=== PATIENT | female | born 1960 | race Caucasian/White ===

== ENCOUNTER → 2020-09-14 12:16 | Outpatient (BNVA) | payer MEDICAID, SELFPAY | PROVIDERS: PCP Nurse Practitioner Family; Visit Provider Nurse Practitioner Family | DX: M25.511 Pain in right shoulder (principal); G89.29 Other chronic pain | CPT/HCPCS: 73030 ==

== ENCOUNTER → 2020-10-05 10:35 | Outpatient (BNVA) | payer MEDICAID, SELFPAY | PROVIDERS: PCP Family Medicine; Referring Provider Specialist; Visit Provider Anesthesiology Pain Medicine | DX: G89.29 Other chronic pain (principal); M54.12 Radiculopathy, cervical region; M43.12 Spondylolisthesis, cervical region; M25.511 Pain in right shoulder; M79.601 Pain in right arm; M19.90 Unspecified osteoarthritis, unspecified site; M79.7 Fibromyalgia; F17.210 Nicotine dependence, cigarettes, uncomplicated; Z79.891 Long term (current) use of opiate analgesic | CPT/HCPCS: 99204 ==

== ENCOUNTER 2020-10-19 09:16 | Outpatient (CLI) | payer MEDICAID, SELFPAY ==
--- NOTE | 2020-10-19 09:21 | XR_ITS ---
WS: [id number] CERVICAL SPINE FLEXION EXTENSION TECHNIQUE: 3 views of the cervical spine: lateral neutral, flexion and extension views. CLINICAL INFORMATION: M43.12 - Spondylolisthesis, cervical region COMPARISON: None. FINDINGS: 1 to 2 mm anterolisthesis C4 on C5. Mild disc space narrowing C5-6. Slight anterior hypertrophic haines ges. Normal prevertebral soft tissues. Normal C1-2 articulation. No instability on flexion-extension. Posterior elements are normal. No other significant findings. XR/XR cervical spine fl/ex [id number] IMPRESSION: No instability on flexion-extension.
--- NOTE | 2020-10-19 09:21 | MR_ITS ---
WS: [id number] MRI CERVICAL SPINE NONCONTRAST TECHNIQUE: Sagittal T1, T2 and STIR imaging. Axial T2, gradient, and fiesta imaging. CLINICAL INFORMATION: M54.12 - Radiculopathy, cervical region COMPARISON: None. FINDINGS: Normal cervical alignment. No high-grade central canal stenosis. Cord signal is normal. Disc bulging worse at C5-6. C2-C3: Normal. C3-C4: Normal. C4-C5: Mild disc osteophytic ridging. Spinal canal is patent. Mild left foraminal narrowing. Mild fac et arthropathy. C5-C6: Disc osteophyte complex with endplate ridging. Slight effacement of ventral thecal sac. Modera te left and no significant right foraminal narrowing. Mild facet arthropathy. Spinal canal is patent. C6-C7: Disc osteophyte complex with endplate ridging. Bdwj-ha-joovyqyt left foraminal narrowing. Righ t foramen is patent. Spinal canal is patent. C7-T1: Moderate left bony foraminal narrowing. Mild right bony foraminal narrowing. Spinal canal is p atent. Upper thoracic canal is patent. Visualized brain stem structures: Normal. Prevertebral soft tissues: Normal. MR/MR cervical spin wo con* [id number] IMPRESSION: 1. Normal cervical alignment. No high-grade central canal stenosis. Cord signa l is normal. 2. Mild to moderate bony foraminal narrowing worse at left C5-C6 and left C6-C 7. Moderate left C7-T1 bony foraminal narrowing. 3. Disc osteophyte bulging C5-C6 and C6-C7 with slight effacement of ventral t hecal sac.
== END 2020-10-19 09:17 | disposition home or self-care (01) ==
PROVIDERS: PCP Family Medicine; Visit Provider Anesthesiology Pain Medicine
DX: M43.12 Spondylolisthesis, cervical region (principal); M54.12 Radiculopathy, cervical region; M25.78 Osteophyte, vertebrae
CPT/HCPCS: 72040; 72141

== ENCOUNTER 2020-10-19 10:03 | Outpatient (CLI) | payer MEDICAID, SELFPAY ==
--- NOTE | 2020-10-19 10:12 | MR_ITS ---
WS: [id number] MRI RIGHT SHOULDER NONCONTRAST TECHNIQUE: Sagittal T2, coronal T1, T2 and proton density imaging. Axial gradient PDE imaging. CLINICAL INFORMATION: RT SHOULDER PAIN COMPARISON: None. FINDINGS: Some images degraded by patient motion. Moderate degenerative arthritis AC joint with a small amount of edema. Mild downsloping of the acromion with subacromial spurring. Slight impingement on the dista l supraspinatus with thinning of the distal supraspinatus with intrasubstance and bursal surface tear deep to the subacromial spurring. No tendon retraction. Normal infraspinatus. Normal teres minor. Normal subscapularis. Normal teres minor. Normal biceps tendon in the bicipital groove. Degenerative fraying of the glenoid labrum. Normal karlene ps labral anchor. Normal bone marrow signal in the humerus and glenoid. MR/MR shoulder RT wo con* [id number] IMPRESSION: 1. Moderate degenerative arthritis at the AC joint with edema and mild downslo ping acromion. Subacromial spurring. 2. Intrasubstance and bursal surface tear involving the distal supraspinatus w ith T2 signal abnormality. No tendon retraction. 3. Rotator cuff is otherwise normal. 4. Normal biceps tendon in the bicipital groove. Normal biceps anchor. 5. Degenerative fraying of the glenoid labrum. 6. No other significant findings.
== END 2020-10-19 10:04 | disposition home or self-care (01) ==
LOC: WPI 10:04
PROVIDERS: PCP Family Medicine; Visit Provider Specialist
DX: M25.511 Pain in right shoulder (principal); M19.011 Primary osteoarthritis, right shoulder
CPT/HCPCS: 73221

== ENCOUNTER → 2020-11-02 11:05 | Outpatient (BNVA) | payer MEDICAID, SELFPAY | PROVIDERS: PCP Family Medicine; Visit Provider Anesthesiology Pain Medicine | DX: G89.29 Other chronic pain (principal); M25.511 Pain in right shoulder; M54.12 Radiculopathy, cervical region; M79.601 Pain in right arm | CPT/HCPCS: 99215 ==

== ENCOUNTER → 2020-11-23 08:45 | Outpatient (BNVA) | payer MEDICAID, SELFPAY | PROVIDERS: PCP Family Medicine; Visit Provider Nurse Practitioner | DX: R56.9 Unspecified convulsions (principal); G43.019 Migraine without aura, intractable, without status migrainosus | CPT/HCPCS: 80177; 80201; 99205 ==

== ENCOUNTER 2021-01-02 07:52 | Outpatient (CLI) | payer MEDICAID, SELFPAY ==
--- NOTE | 2021-01-02 08:00 | MR_ITS ---
WS: [id number] MRI HEAD WITH CONTRAST TECHNIQUE: Sagittal T1, T2 axial, T2 axial FLAIR, axial susceptibility weighted imaging, axial diffus ion weighted images, and coronal T2 images were obtained. Pre and post-T1 axial and post T1 coronal i mages. ADC and FSPGR images. CLINICAL INFORMATION: G43.019 - Migraine without aura, intractable, without sta... COMPARISON: None. FINDINGS: No evidence of restricted diffusion to suggest acute ischemia. Ventricular system and basal cisterns are patent. Normal gan-white differentiation. No suspicious intracranial signal abnormalities. Sharon l posterior fossa. Normal vascular flow voids at the skull base. No extra-axial fluid collections. No evidence of mass or mass effect. Mild mucosal thickening in the mastoid air cells. Retention cyst ri ght maxillary sinus. No hemosiderin on susceptibly weighted images. Normal optic chiasm and pituitary infundibulum. Tempor al lobes and hippocampal formations are normal in appearance. No abnormal gadolinium enhancement. Normal cavernous sinuses and Meckel's cave. Normal dural venous s inuses. MR/MR head wo/w con [id number] IMPRESSION: 1. No evidence of restricted diffusion to suggest acute ischemia. 2. No suspicious intracranial signal abnormalities. Normal gan-white differen tiation. 3. No abnormal gadolinium enhancement. 4. No hemosiderin on the susceptibly weighted images. 5. No other significant findings.
[2021-01-02] MEDS: gadobenate dimeglumine 20 mL vial IV (09:40)
== END 2021-01-02 07:53 | disposition home or self-care (01) ==
LOC: RADSHAW 07:53
PROVIDERS: PCP Family Medicine; Visit Provider Nurse Practitioner
DX: G43.019 Migraine without aura, intractable, without status migrainosus (principal); R56.9 Unspecified convulsions
CPT/HCPCS: 70553; A9577

== ENCOUNTER → 2021-01-10 10:33 | Outpatient (BNVA) | payer MEDICAID, SELFPAY | PROVIDERS: PCP Family Medicine; Referring Provider Nurse Practitioner; Visit Provider Specialist | DX: R56.9 Unspecified convulsions (principal) | CPT/HCPCS: 95816 ==

== ENCOUNTER → 2021-04-22 08:36 | Outpatient (BNVA) | payer MEDICAID, SELFPAY | PROVIDERS: PCP Family Medicine; Visit Provider Family Medicine | DX: M25.50 Pain in unspecified joint (principal) | CPT/HCPCS: 80053; 85025; 85651; 86140; 86160; 86162; 86235; 86255; 86376; 86431 ==

== ENCOUNTER → 2021-04-25 16:10 | Outpatient (BNVA) | payer MEDICAID, SELFPAY | PROVIDERS: PCP Family Medicine; Visit Provider Family Medicine | DX: M54.50 Low back pain, unspecified (principal) | CPT/HCPCS: 81000 ==

== ENCOUNTER → 2021-05-22 09:51 | Outpatient (BNVA) | payer MEDICAID, SELFPAY | PROVIDERS: PCP Family Medicine; Visit Provider Internal Medicine | DX: M81.0 Age-related osteoporosis without current pathological fracture (principal); M54.50 Low back pain, unspecified; E46 Unspecified protein-calorie malnutrition; Z68.20 Body mass index [BMI] 20.0-20.9, adult; Z11.59 Encounter for screening for other viral diseases; F17.210 Nicotine dependence, cigarettes, uncomplicated | CPT/HCPCS: 99204 ==

== ENCOUNTER 2021-05-22 11:52 | Outpatient (CLI) | payer MEDICAID, SELFPAY ==
[2021-05-22 13:15] LABS: Erythrocyte Sedimentation Rate 1 mm/hr (0-15)
[2021-05-22 13:31] LABS: Creatine Phosphokinase 39 U/L (26-192); Magnesium 1.9 mg/dL (1.7-2.3)
[2021-05-22 13:45] LABS: 25 Hydroxy Vitamin D 31 ng/mL (30-100); Vitamin B12 342 pg/mL (232-1245)
[2021-05-22 13:58] LABS: Hepatitis B Core AB, Total Non-Reactive (Nonreactive); Hepatitis B Surface Antigen Non-Reactive (Nonreactive); Hepatitis C Virus Antibody Non-Reactive (Nonreactive)
[2021-05-22 14:09] LABS: Calcium 9.6 mg/dL (8.5-10.5)
[2021-05-22 14:46] LABS: Parathyroid Hormone 29.2 pg/mL (15-65)
[2021-05-23 14:23] LABS: Cyclic Citrullinated Peptide <16 UNITS
== END 2021-05-22 11:53 | disposition home or self-care (01) ==
LOC: LAB 11:56
PROVIDERS: PCP Family Medicine; Visit Provider Internal Medicine
DX: M81.0 Age-related osteoporosis without current pathological fracture (principal); M79.7 Fibromyalgia; M54.12 Radiculopathy, cervical region; M25.511 Pain in right shoulder
CPT/HCPCS: 82306; 82310; 82550; 82607; 83735; 83970; 84100; 85651; 86140; 86200; 86704; 86803; 87340

== ENCOUNTER 2021-05-28 08:58 | Outpatient (CLI) | payer MEDICAID, SELFPAY ==
--- NOTE | 2021-05-28 09:24 | XR_ITS ---
WS: [id number] Right knee, AP and lateral views, 05/28/2021 Clinical Data: M81.0 - Age-related osteoporosis without current pathology... Comparison: None. Findings: No fractures or dislocations are seen. The joint spaces are normal. The patella is intact. The soft t issues are unremarkable. XR/XR knee RT 1-2V [id number] Impression: Negative right knee. Kellgren-Humberto Classification: grade 0 (none): definite absence of x-ray shweta nges of osteoarthritis
--- NOTE | 2021-05-28 09:24 | XR_ITS ---
WS: [id number] XR lumbar spine 2-3V* [id number] REASON FOR EXAM: M81.0 - Age-related osteoporosis without current patholog... FINDINGS: Normal lateral and AP curvature of the lumbar spine. Decreased bone density for age. Mild biconcave compression deformities of the lumbar vertebral bodies. Compression deformities are mo st prominent in the L2-L4. The intervertebral disc spaces are relatively well-preserved. No spondylolysis and no significant listhesis. XR/XR lumbar spine 2-3V* [id number] IMPRESSION: Decreased bone density with mild biconcave compression deformities of the lumba r spine as above.
--- NOTE | 2021-05-28 09:24 | XR_ITS ---
WS: [id number] Bilateral hips, 2 views each, 05/28/2021 Clinical Data: M81.0 - Age-related osteoporosis without current patholog... Comparison: None. Findings: Right hip: There are no fractures or dislocations. The joint space is normal without erosion, sclerosis, narrowi ng or fragmentation of the femoral head. The adjacent right pelvis is normal. Left hip: There are no fractures or dislocations. The joint space is normal without erosion, sclerosis, narrowi ng or fragmentation of the femoral head. The adjacent left pelvis is normal. XR/XR hip BI 3-4V wo/w pel [id number] Impression: Negative bilateral hips.
--- NOTE | 2021-05-28 09:24 | XR_ITS ---
WS: [id number] Left knee, AP and lateral views, 05/28/2021 Clinical Data: M81.0 - Age-related osteoporosis without current pathology... Comparison: None. Findings: No fractures or dislocations are seen. The joint spaces are normal. The patella is intact. The soft t issues are unremarkable. XR/XR knee LT 1-2V [id number] Impression: Negative left knee. Kellgren-Humberto Classification: grade 0 (none): definite absence of x-ray shweta nges of osteoarthritis
== END 2021-05-28 08:59 | disposition home or self-care (01) ==
LOC: RAD 08:59
PROVIDERS: PCP Family Medicine; Visit Provider Internal Medicine
DX: M81.0 Age-related osteoporosis without current pathological fracture (principal); M25.511 Pain in right shoulder; M54.12 Radiculopathy, cervical region; M79.7 Fibromyalgia
CPT/HCPCS: 72100; 73522; 73560

== ENCOUNTER → 2021-06-07 09:50 | Outpatient (BNVA) | payer MEDICAID, SELFPAY | PROVIDERS: PCP Family Medicine; Visit Provider Internal Medicine | DX: M81.0 Age-related osteoporosis without current pathological fracture (principal); Z79.899 Other long term (current) drug therapy; M54.50 Low back pain, unspecified; Z87.310 Personal history of (healed) osteoporosis fracture; F17.210 Nicotine dependence, cigarettes, uncomplicated | CPT/HCPCS: 99214 ==

== ENCOUNTER → 2021-06-17 09:15 | Outpatient (BNVA) | payer MEDICAID, SELFPAY | PROVIDERS: PCP Family Medicine; Visit Provider Anesthesiology Pain Medicine | DX: G89.29 Other chronic pain (principal); M54.50 Low back pain, unspecified; M54.12 Radiculopathy, cervical region; M25.511 Pain in right shoulder; M79.601 Pain in right arm; M79.604 Pain in right leg; M79.605 Pain in left leg; F17.210 Nicotine dependence, cigarettes, uncomplicated | CPT/HCPCS: 99214; 99215 ==

== ENCOUNTER → 2021-06-21 15:26 | Outpatient (BNVA) | payer MEDICAID, SELFPAY | PROVIDERS: PCP Family Medicine; Visit Provider Nurse Practitioner | DX: G40.909 Epilepsy, unspecified, not intractable, without status epilepticus (principal); G43.019 Migraine without aura, intractable, without status migrainosus; F17.210 Nicotine dependence, cigarettes, uncomplicated | CPT/HCPCS: 99213; 99214 ==

== ENCOUNTER 2021-08-02 10:52 | Outpatient (CLI) | payer MEDICAID, SELFPAY ==
--- NOTE | 2021-08-02 11:00 | MR_ITS ---
WS: [id number] MRI LUMBAR SPINE NONCONTRAST HISTORY: Chronic back pain. Bilateral hip and groin patent. COMPARISON: None available. TECHNIQUE: Sagittal and axial multisequence imaging is submitted. Normal lumbar alignment with no compression fractures or marrow edema. Disc spaces and vertebral body heights are well-preserved. Conus terminates normally at L1-2 disc level. L1-L2: Normal. L2-L3: Mild annular disc bulging with no stenosis. L3-L4: Normal. L4-L5: Mild annular disc bulge with this shallow central disc protrusion. Moderate ligamentum flavum hypertrophy and facet arthritis. Encroachment into the thecal sac. Mild central, bilateral subarticul ar recess and foraminal stenosis. There is disc contacting and encroachment upon the bilateral L5 ner ve roots. L5-S1: No significant stenosis. No disc protrusion. Paravertebral soft tissues are normal. MR/MR lumbar spine wo con* [id number] IMPRESSION: 1. No significant central or foraminal stenosis. 2. Mild central, bilateral subarticular recess and foraminal stenosis at L4-5 with disc contacting the L5 nerve roots. 3. No fracture or marrow edema.
== END 2021-08-02 10:53 | disposition home or self-care (01) ==
LOC: RAD 10:55
PROVIDERS: PCP Family Medicine; Visit Provider Anesthesiology Pain Medicine
DX: M48.062 Spinal stenosis, lumbar region with neurogenic claudication (principal)
CPT/HCPCS: 72148

== ENCOUNTER → 2021-08-15 10:18 | Outpatient (BNVA) | payer MEDICAID, SELFPAY | PROVIDERS: PCP Family Medicine; Visit Provider Anesthesiology Pain Medicine | DX: G89.29 Other chronic pain (principal); M54.50 Low back pain, unspecified; M25.511 Pain in right shoulder; M54.12 Radiculopathy, cervical region; M79.604 Pain in right leg; M79.605 Pain in left leg; F17.210 Nicotine dependence, cigarettes, uncomplicated | CPT/HCPCS: 99214 ==

== ENCOUNTER → 2021-09-09 09:37 | Outpatient (BNVA) | payer MEDICAID, SELFPAY | PROVIDERS: PCP Family Medicine; Visit Provider Internal Medicine | DX: M54.50 Low back pain, unspecified (principal); M81.0 Age-related osteoporosis without current pathological fracture; Z79.899 Other long term (current) drug therapy | CPT/HCPCS: 80053; 85025; 85651; 86140 ==

== ENCOUNTER → 2021-09-12 10:56 | Outpatient (BNVA) | payer MEDICAID, SELFPAY | PROVIDERS: PCP Family Medicine; Visit Provider Anesthesiology Pain Medicine | DX: G89.29 Other chronic pain (principal); M54.50 Low back pain, unspecified; M54.12 Radiculopathy, cervical region; M25.511 Pain in right shoulder; M79.601 Pain in right arm; M79.604 Pain in right leg; M79.605 Pain in left leg; R20.2 Paresthesia of skin; F17.210 Nicotine dependence, cigarettes, uncomplicated | CPT/HCPCS: 99214 ==

== ENCOUNTER → 2021-09-26 10:20 | Outpatient (BNVA) | payer MEDICAID, SELFPAY | PROVIDERS: PCP Family Medicine; Visit Provider Internal Medicine | DX: M80.08XA Age-related osteoporosis with current pathological fracture, vertebra(e), initial encounter for fracture (principal); F17.210 Nicotine dependence, cigarettes, uncomplicated | CPT/HCPCS: 99213; 99214 ==

== ENCOUNTER → 2021-10-07 13:03 | Outpatient (BNVA) | payer MEDICAID, SELFPAY | PROVIDERS: PCP Family Medicine; Visit Provider Anesthesiology Pain Medicine | DX: M54.16 Radiculopathy, lumbar region (principal) | CPT/HCPCS: 62323; J1040; J3490 ==

== ENCOUNTER → 2021-11-27 09:46 | Outpatient (BNVA) | payer MEDICAID, SELFPAY | PROVIDERS: PCP Family Medicine; Visit Provider Anesthesiology Pain Medicine | DX: M54.50 Low back pain, unspecified (principal); M25.511 Pain in right shoulder; G89.29 Other chronic pain; M54.12 Radiculopathy, cervical region | CPT/HCPCS: 99213 ==

== ENCOUNTER 2021-12-05 13:15 | Outpatient (CLI) | payer MEDICAID, SELFPAY ==
[2021-12-05 14:33] LABS: Albumin Level 3.7 g/dL (3.5-5.2); Calcium 8.4 mg/dL (8.5-10.5); Glomerular Filtration Rate 102.3 mL/min (90-130)
[2021-12-05 14:49] LABS: 25 Hydroxy Vitamin D 28 ng/mL (30-100)
[2021-12-05 14:52] VITALS: BP 114/76; PULSE 68; RESP 18; TEMP 36.3; O2SAT 97
[2021-12-05] MEDS: denosumab 60 mg SDV SUBCUT (15:01)
[2021-12-05 15:08] VITALS: BP 119/75; PULSE 71; RESP 18; TEMP 36.4; O2SAT 97
== END 2021-12-05 13:16 | disposition home or self-care (01) ==
LOC: ONCMED 13:16
PROVIDERS: PCP Family Medicine; Referring Provider Internal Medicine; Visit Provider Internal Medicine
DX: M81.0 Age-related osteoporosis without current pathological fracture (principal)
CPT/HCPCS: 36415; 82040; 82306; 82310; 82565; 96372; J0897

== ENCOUNTER 2021-12-26 08:28 | Outpatient (CLI) | payer MEDICAID, SELFPAY ==
--- NOTE | 2021-12-26 08:41 | MM_ITS ---
WS: [id number] DIAGNOSTIC BILATERAL DIGITAL BREAST TOMOSYNTHESIS MAMMOGRAPHY WITH CAD HISTORY: HX OF BREAST CA, history of RIGHT breast cancer. COMPARISON: Unable to obtain prior imaging studies. TECHNIQUE: Bilateral craniocaudad, mediolateral oblique, and mediolateral views are submitted with to mosynthesis and SM. Computer aided detection utilized. Patient would not remove bilateral nipple rings. Breast composition: There are scattered areas of fibroglandular density. No suspicious masses or calc ifications. No calcification. MM/[place] [id number] IMPRESSION: BI-RADS: 2-Benign FOLLOW UP: 1 Year Follow-up
== END 2021-12-26 08:29 | disposition home or self-care (01) ==
LOC: RAD 08:28
PROVIDERS: PCP Family Medicine; Visit Provider Family Medicine
DX: Z98.890 Other specified postprocedural states (principal)
CPT/HCPCS: 77062

== ENCOUNTER → 2022-01-01 12:47 | Outpatient (BNVA) | payer MEDICAID, SELFPAY | PROVIDERS: PCP Family Medicine; Visit Provider Nurse Practitioner | DX: G43.019 Migraine without aura, intractable, without status migrainosus (principal) | CPT/HCPCS: 99213 ==

== ENCOUNTER → 2022-01-09 13:28 | Outpatient (BNVA) | payer MEDICAID, SELFPAY | PROVIDERS: PCP Family Medicine; Visit Provider Orthopaedic Surgery | DX: M48.062 Spinal stenosis, lumbar region with neurogenic claudication (principal) | CPT/HCPCS: 99204 ==

== ENCOUNTER 2022-02-12 05:45 | Day surgery (SDC) | payer MEDICAID, SELFPAY ==
--- NOTE | 2022-02-05 09:59 | ANES.PREANE2 ---
Pre-Anesthetic Assessment Height/Weight: Height 1.45 m Weight 41.277 kg Operation Date: 02/12/22 09:50 Proposed Procedures p Lumbar Spine Decompression L4/5 51785/M48.062(Not Applicable) - Harshad Guy DO Familial anesthetic complications: none Was Beta Ambreen taken within 24 hours: Yes Was Clonidine taken within 24 hours: N/A Social Tobacco and No alcohol anil Exam alert, oriented x 3 and regular rate & rhythm Airway Submandibular: within normal limits Cervical ROM: within normal limits Mallampati: Class II Dentition: false Pulmonary Asthma and Chronic Obstructive Pulmonary Disease CV/HEM Hypertension Musc/skel Lower Back Pain and Osteoarthritis/DJD Neuropsych Anxiety and Seizure Chronic pain Anesthetic Plan ASA status: 3 Anesthesia: General Medications/Allergies Home Medications Medication Instructions Recorded Confirmed Last Taken Type albuterol sulfate 2.5 mg/3 mL 2.5 mg (3 mL) inhalation Q6H #180 01/09/21 02/05/22 Unknown Rx (0.083 %) solution for nebulization mL facemask and tubing for nebulizer #1 ea 01/16/21 01/09/22 Unknown Rx Medical Marijuana PO PRN Pain 05/22/21 01/09/22 02/04/22 History denosumab 60 mg/mL subcutaneous 60 mg SUBCUT ONCE #1 mL 06/07/21 02/05/22 Unknown Rx syringe (Prolia) cholecalciferol (vitamin D3) 125 125 mcg PO DAILY 08/15/21 02/05/22 02/05/22 History mcg (5,000 unit) capsule mecobalamin (vitamin B12) 5,000 5,000 mcg PO DAILY 08/15/21 02/05/22 02/05/22 History mcg disintegrating tablet melatonin 10 mg tablet 10 mg PO DAILY 08/15/21 02/05/22 02/04/22 History prenat.vits,joel,hnt-ovdn-ptdar 1 tab PO DAILY 08/15/21 02/05/22 02/05/22 History fluticasone propionate 50 1 spray intranasal DAILY #16 grams 10/29/21 02/05/22 02/05/22 Rx mcg/actuation nasal spray,suspension (Flonase Allergy Relief) milnacipran 25 mg tablet (Savella) 25 mg PO BID 30 days #60 tabs 10/29/21 02/05/22 Unknown Rx zolpidem 12.5 mg tablet,extended 12.5 mg PO .[facility] #30 tabs 10/29/21 02/05/22 02/04/22 Rx release,multiphase (Ambien CR) albuterol sulfate 90 mcg/actuation 2 inh inhalation DAILY 02/05/22 02/05/22 Unknown History aerosol inhaler (Ventolin HFA) atenolol 25 mg tablet 25 mg PO DAILY 02/05/22 02/05/22 02/04/22 History benzonatate 200 mg capsule 200 mg PO BID 02/05/22 02/05/22 02/05/22 History fremanezumab-vfrm 225 mg/1.5 mL 225 mg SUBCUT DIRECTED 02/05/22 02/05/22 Unknown History subcutaneous auto-injector (Ajovy) hydroxyzine HCl 50 mg tablet 50 mg PO DAILY 02/05/22 02/05/22 02/04/22 History levetiracetam 500 mg tablet 1,500 mg PO BID 02/05/22 02/05/22 02/05/22 History (Keppra) lorazepam 1 mg tablet (Ativan) 1 mg PO BID 02/05/22 02/05/22 02/03/22 History montelukast 10 mg tablet 10 mg PO DAILY 02/05/22 02/05/22 02/05/22 History (Singulair) raloxifene 60 mg tablet (Evista) 60 mg PO DAILY 02/05/22 02/05/22 02/05/22 History rizatriptan 10 mg tablet 100 mg PO DIRECTED PRN Headache 02/05/22 02/05/22 Unknown History tamsulosin 0.4 mg capsule (Flomax) 0.4 mg PO DAILY 02/05/22 02/05/22 02/05/22 History topiramate 200 mg tablet (Topamax) 200 mg PO BID 02/05/22 02/05/22 02/05/22 History topiramate 50 mg tablet 50 mg PO DAILY 02/05/22 02/05/22 02/05/22 History ubrogepant 100 mg tablet (Ubrelvy) 100 mg PO DAILY PRN Headache 02/05/22 02/05/22 Unknown History verapamil 200 mg capsule 24hr 200 mg PO DAILY 02/05/22 02/05/22 02/05/[address],ext.release Allergies Allergy/AdvReac Type Severity Reaction Status Date / Time codeine Allergy ADR-Vomitin Verified 01/09/22 13:36 g PFSH Anesthesia Medical History Asthma Breast calcification, right Clavicle fracture Compression fracture COPD (chronic obstructive pulmonary disease) Migraine Osteoporosis Seizure Surgical History History of lumpectomy of right breast Hx of hysterectomy Family History Mother Cancer breast 2000 Migraines Grandmother Cancer Diabetes Other Chronic kidney disease (CKD) Stroke Denies family history of Rheumatoid arthritis Lupus CAD (coronary artery disease) Hyperlipidemia Bleeding disorder Hypertension Social History Smoking and tobacco status: current every day smoker cigarettes Packs smoked per day: 0.5 Years cigarettes smoked: 33 Alcohol intake: never Caregiver/support person: Yes Lives independently: No (lives with son) Marital status: service: No Current occupational status: disabled History of recent travel: No Current gender identity: Female Special teetee needs: No Data Anesthesia Cardiac Studies: No Data to Display
[2022-02-12] VITALS (9 sets, daily range): BP systolic 89–113; BP diastolic 51–76; PULSE 67–87; RESP 16–18; TEMP 36.2–36.7; O2SAT 97–100
--- NOTE | 2022-02-12 06:11 | PM.HP ---
Providers/Chief Complaint Primary Care Provider: Jennifer Pena MD Chief Complaint: L4/5 DECOMPRESSION 35308/M48.062 History of Present Illness Beth Rowland is a 62 year old female ?low back pain. Patient is [facility] with [facility] She states her pain is located in her lower back radiating into her bilateral hips and extremities. She states her left side is worse. She reports numbness, tingling and weakness. She reports a cold sensation in her bilateral feet. She rates her pain a 8/10 at todays visit. She states her pain is a 8 or 9 daily. She explains she is unable to hold her grand baby due to her pain. She states she has received ILESI L4/[address] Escudero with no relief. She has tried physical therapy in the past with no relief. Review of Systems General: Reports: 10 or more systems reviewed and unremarkable except in HPI and below Const: Denies: fever(s), chills or body aches Card: Denies: chest pain or orthopnea Resp: Denies: dyspnea, productive cough or wheezing GI: Denies: abdominal pain, nausea or vomiting Musc: Reports: back pain and extremity pain Skin/Breast: Denies: changes in skin color or dry skin Neuro: Reports: numbness in extremities and weakness in extremities Psych: Denies: anxiety Edilson/Lymph: Denies: easy bruising or easy bleeding Medications/Allergies Home Medications Medication Instructions Recorded Confirmed Last Taken Type albuterol sulfate 2.5 mg/3 mL 2.5 mg (3 mL) inhalation Q6H #180 01/09/21 02/05/22 Unknown Rx (0.083 %) solution for nebulization mL facemask and tubing for nebulizer #1 ea 01/16/21 01/09/22 Unknown Rx Medical Marijuana PO PRN Pain 05/22/21 01/09/22 02/04/22 History denosumab 60 mg/mL subcutaneous 60 mg SUBCUT ONCE #1 mL 06/07/21 02/05/22 Unknown Rx syringe (Prolia) cholecalciferol (vitamin D3) 125 125 mcg PO DAILY 08/15/21 02/12/22 02/11/22 History mcg (5,000 unit) capsule mecobalamin (vitamin B12) 5,000 5,000 mcg PO DAILY 08/15/21 02/05/22 02/11/22 History mcg disintegrating tablet melatonin 10 mg tablet 10 mg PO DAILY 08/15/21 02/05/22 02/10/22 History prenat.vits,joel,ynl-ktpc-gjqtq 1 tab PO DAILY 08/15/21 02/05/22 02/05/22 History fluticasone propionate 50 1 spray intranasal DAILY #16 grams 10/29/21 02/05/22 02/05/22 Rx mcg/actuation nasal spray,suspension (Flonase Allergy Relief) milnacipran 25 mg tablet (Savella) 25 mg PO BID 30 days #60 tabs 10/29/21 02/05/22 Unknown Rx zolpidem 12.5 mg tablet,extended 12.5 mg PO .qhs #30 tabs 10/29/21 02/05/22 02/10/22 Rx release,multiphase (Ambien CR) albuterol sulfate 90 mcg/actuation 2 inh inhalation DAILY 02/05/22 02/12/22 02/11/22 History aerosol inhaler (Ventolin HFA) atenolol 25 mg tablet 25 mg PO DAILY 02/05/22 02/05/22 02/11/22 History benzonatate 200 mg capsule 200 mg PO BID 02/05/22 02/05/22 02/05/22 History fremanezumab-vfrm 225 mg/1.5 mL 225 mg SUBCUT DIRECTED 02/05/22 02/12/22 01/16/22 History subcutaneous auto-injector (Ajovy) hydroxyzine HCl 50 mg tablet 50 mg PO DAILY 02/05/22 02/05/22 02/10/22 History levetiracetam 500 mg tablet 1,500 mg PO BID 02/05/22 02/05/22 02/11/22 History (Keppra) lorazepam 1 mg tablet (Ativan) 1 mg PO BID 02/05/22 02/05/22 02/10/22 History montelukast 10 mg tablet 10 mg PO DAILY 02/05/22 02/05/22 02/11/22 History (Singulair) raloxifene 60 mg tablet (Evista) 60 mg PO DAILY 02/05/22 02/05/22 02/11/22 History rizatriptan 10 mg tablet 100 mg PO DIRECTED PRN Headache 02/05/22 02/12/22 02/09/22 History tamsulosin 0.4 mg capsule (Flomax) 0.4 mg PO DAILY 02/05/22 02/05/22 02/11/22 History topiramate 200 mg tablet (Topamax) 200 mg PO BID 02/05/22 02/05/22 02/11/22 History topiramate 50 mg tablet 50 mg PO DAILY 02/05/22 02/05/22 02/11/22 History ubrogepant 100 mg tablet (Ubrelvy) 100 mg PO DAILY PRN Headache 02/05/22 02/05/22 Unknown History verapamil 200 mg capsule 24hr 200 mg PO DAILY 02/05/22 02/05/22 02/11/[address],ext.release Allergies Allergy/AdvReac Type Severity Reaction Status Date / Time codeine Allergy ADR-Vomitin Verified 01/09/22 13:36 g PFSH Acute PFSH: Medical History Asthma Breast calcification, right Clavicle fracture Compression fracture COPD (chronic obstructive pulmonary disease) Migraine Osteoporosis Seizure Surgical History History of lumpectomy of right breast Hx of hysterectomy Family History Mother Cancer breast 2000 Migraines Grandmother Cancer Diabetes Other Chronic kidney disease (CKD) Stroke Denies family history of Rheumatoid arthritis Lupus CAD (coronary artery disease) Hyperlipidemia Bleeding disorder Hypertension Social History Smoking and tobacco status: current every day smoker cigarettes Packs smoked per day: 0.5 Years cigarettes smoked: 33 Alcohol intake: never Caregiver/support person: Yes Lives independently: No (lives with son) Marital status: service: No Current occupational status: disabled History of recent travel: No Current gender identity: Female Special teetee needs: No Vitals/I&O/Wt Last Vital Signs Temp 98.0 F 02/12/22 05:55 Pulse 71 02/12/22 05:55 Resp 16 02/12/22 05:55 BP 113/76 02/12/22 05:55 Pulse Ox 97 02/12/22 05:55 O2 Del Method 02/12/22 05:55 Physical Exam Narrative: CONSTITUTIONAL: The patient is a normal appearing [] in no apparent distress. GENERAL: Patient in no acute distress. CARDIAC: Regular rate and rhythm. CHEST: Normal inspiratory effort, normal respiratory rate. ABDOMEN: Soft and nontender. SKIN: Clear, warm and intact. NEURO?PSYCH: The patient is alert and oriented to person, place and time. Sensorv /SILT Motor StrengthShoulder abduction C5 5/5Wrist extension C6 5/5Elbow extension C7 5/5Hand Floor Covering Installer C8 5/5Finger abduction T15/5 Radial/ Ulnar/ Median n intact LowerSensory (SILT)Motor StrengthHin flexion L2/3Ant/inner thigh 5/5Hip adduction L2/3 5/5Knee extension L4 Lat thigh, 5/5Toe dorsiflexion L5 5/5Ankle dorsiflexion L5/ M18Okxtybt flexion S1 5/5 DTRBleeps 2+Triceps 2+Brachioradialis 2+Patellar 2+Achilles 2+ MUSCULOSKELETAL: [] UPPEREXTREMITIES: The patient had full active ROM in fingers, wrist, elbow, and shoulder. The patient demonstrated ability to fully flex/extend/abduct/adduct fingers, make ok sign, cross 2nd/3rd digits, extend 1st digit fully.. Radial pulse 2+, CR<2 seconds. LOWER EXTREMITIES: Pt has full, active ROM of toes, ankle, knee, and hip. Dorsalis pedis/posterior tibialis pulses 2+, CR<2 seconds. SPINE: Skin warm, dry, intact. A&P Assessment and plan (1) Lumbar stenosis with neurogenic claudication: Patient is having low back pain and pain rating down mostly her left leg but some to her right leg and her lateral hips and down her legs.? She has had injections which have not helped.? MRI and x-rays reviewed MRI shows moderate to severe stenosis at L4-5.? This point I recommended a left L4-5 minimally invasive decompression with bilateral decompression.? Patient wants to think about it and will call to see if she wants to have surgery. Attestations Medical Necessity Statement*: failed conservative tx Coding Level of Care Code Acute Nurses Medical Assistants Phlebotomists for [facility] Fwd Diagnoses Lumbar stenosis with neurogenic claudication M48.062
[2022-02-12] MEDS: sodium chloride 0.9% 1,000 ML 30 ML IV (06:14)
--- NOTE | 2022-02-12 06:35 | P.ANESUD_ITS ---
Pre-Anesthetic Update Pre-Anesthetic Assessment: Date of Surgery/Procedure: 02/12/22 Preop Mari gnosis: Lumbar stenosis with neurogenic claudication Proposed Procedure: Operation Date: 02/12/22 07:00 Proposed Procedures p Lumbar Spine Decompression L4/5 89961/M48.062(Not Applicable) - Harshad Guy, DO Any changes to Pre-Anesthetic Assessment?: No Last Intake: Intake Last Liquid Date 02/12/22 Last Liquid Time 04:00 Last Solid Date 02/11/22 Last Solid Time 19:00 Vitals: Temperature 98.0 F 02/12/22 05:55 Temperature Source Temporal Artery S can 02/12/22 05:55 Pulse Rate 71 02/12/22 05:55 Respiratory Rate 16 02/12/22 05:55 Blood Pressure 113/76 02/12/22 05:55 Blood Pressure Elissa n 88 02/12/22 05:55 Pulse Oximetry 97 02/12/22 05:55 Oxygen Delivery Me thod 02/12/22 06:13 Exam: Pre-Anes Outpt Exam: alert, oriented x 3, clear to auscultation bilaterally and regular rate & rhythm Cardiac Studies: No Data to Display
[2022-02-12] MEDS: ceFAZolin 2,000 MG in sodium chloride 0.9% (plus) 50 ML 100 MG IV (06:59)
--- NOTE | 2022-02-12 08:09 | XR_ITS ---
WS: [id number] XR lumbar spine 1V [id number] REASON FOR EXAM: POST OP PICS FINDINGS: Surgical device overlies the left L4-L5 interspace. XR/XR lumbar spine 1V 13130 IMPRESSION: Lumbar spine localization during surgery as above.
--- NOTE | 2022-02-12 08:11 | P.OP_ITS ---
Operative Report Date of procedure: February 12, 2022 Pre-op diagnosis: Preop Diagnosis Lumbar stenosis with neurogenic claudication Post-op diagnosis: same Procedure done: 1. L4/5 laminectomy with partial facetectomies Surgeon: Harshad Guy Chief Steward/Stewardess: Timo Howard Chief Steward/Stewardess: The quality assurance assistant, KIERA Patel was needed for his expertise under the microscope. He was important and necessary throughout the procedure to complete in a safe and timely manner. He assisted with patient positioning prepping and draping tissue retraction suctioning of the operative field protection of the dural sac and tissue closure Estimated blood loss (mL): 5 Procedure: 1. L4/5 laminectomy with partial facetectomies Patient is brought to the operative suite. After undergoing anesthesia they are placed in the prone position. All areas of impingement are well padded. Patient is then prepped and draped in the normal sterile fashion. A skin incision is made over the L4/5 level. This is confirmed under c-arm guidance. A series of dilators are passed and the tubular retractor is docked on the L4 lamina. A bovie is used to clear the soft tissue off the lamina and the L 4/5 facet joint. A high speed easton is then used to perform the laminectomy and take down the medial aspect of the L 4/5 facet joint. A kerrison rongeure was then used to take down the remaining lamina and smooth the edged of the laminectomy up to the point where the ligamentum flavum attaches. Attention was then brought to the medial aspect of the facet joint. The remaining medial aspect of the superior and inferior aspect of the facet joint were taken down with the kerrison from the pedicle of L4 to L 5. The facet joint had significant hypertrophy. Attention was then brought to the Ligamentum Flavum. The ligament was taken down from the lamina of L4 to L5 and out medially to the remaining facet joint. The ligament was thick and fibrous. The dura was then exposed. The dura was in good repair. The L4 nerve was then traced with a curette out the L4/5 foramen and found to be adequately decompressed. The L5 nerve was traced with a curette around the L5 pedicle. The lateral recess was opened with a kerrison helping to further decompress the L5 nerve. The tubular retractor was then tilted to the contralateral side. The bovie was used to take down the soft tissue on the spinous process. The high speed easton was used to take down the spinous process and then the contralateral lamina of L4. The kerrison rongeur was used to take down the remaining lamina to the point where the ligamentum flavum attached and the ligamentum flavum was taken down from L4 to L5. The kerrison rongeur was then used to reach across and take down the medial aspect of the contralateral L4/5 facet joint.The currete was used to trace the contralateral L4 nerve out the L4/5 foramen to make sure it was decompressed adequatesly and the L5 was traced around the L5 pedicle. The lateral recess was opened further with the kerrison to ensure the L5 is adequately decompressed. Wound is then irrigated copiously with saline and surgiflo is used to stop any bleeding. The tubular retractor is removed and the wound is closed with vicryl and monocryl suture. Glue is then used to protect the wound. A sterile dressing is then placed. Patient was then placed in the supine position and transferred to the PACU in stable condition.
[2022-02-12] MEDS: albuterol 2.5 mg/3 mL Neb (08:15)
[2022-02-12] MEDS: HYDROcodone-acetaminophen 5-325 mg Tablet 1 TAB PO (08:50)
--- NOTE | 2022-02-12 15:03 | ANE.PACU2 ---
Inpatient post-anesthesia follow up: Airway intact: Yes Vital signs: Temperature 97.2 F Pulse Rate 67 Respiratory Rate 18 Blood Pressure 94/59 Pulse Oximetry 98 Oxygen Delivery Me thod Room Air Oxygen Flow Rate 6 Fraction of Inspir ed Oxygen Hydration adequate: Yes Pain level: 1 Mental status: Baseline
== END 2022-02-12 09:32 | disposition home or self-care (01) ==
PROVIDERS: PCP Family Medicine; Visit Provider Orthopaedic Surgery
PROC: (CPT 63005; principal; 2022-02-12 07:00)
DX: M48.062 Spinal stenosis, lumbar region with neurogenic claudication (principal); J44.9 Chronic obstructive pulmonary disease, unspecified; M81.0 Age-related osteoporosis without current pathological fracture; F17.210 Nicotine dependence, cigarettes, uncomplicated
CPT/HCPCS: 63047; 72020; 76000; J0690; J1100; J2405; J2704; J2710; J3010; J3490; J7030; J7613

== ENCOUNTER → 2022-02-25 08:45 | Outpatient (BNVA) | payer MEDICARE, OTHER, MEDICAID, SELFPAY | PROVIDERS: PCP Family Medicine; Visit Provider Orthopaedic Surgery | DX: Z47.89 Encounter for other orthopedic aftercare (principal) | CPT/HCPCS: 99024 ==

== ENCOUNTER → 2022-03-25 10:34 | Outpatient (BNVA) | payer MEDICARE, OTHER, MEDICAID, SELFPAY | PROVIDERS: PCP Family Medicine; Visit Provider Orthopaedic Surgery | DX: Z47.89 Encounter for other orthopedic aftercare (principal) | CPT/HCPCS: 99024 ==

== ENCOUNTER → 2022-04-07 14:10 | Outpatient (BNVA) | payer MEDICARE, OTHER, SELFPAY | PROVIDERS: PCP Internal Medicine; Visit Provider Internal Medicine | DX: M81.0 Age-related osteoporosis without current pathological fracture (principal) | CPT/HCPCS: 99214 ==

== ENCOUNTER → 2022-05-06 13:22 | Outpatient (BNVA) | payer MEDICARE, OTHER, MEDICAID, SELFPAY | PROVIDERS: PCP Internal Medicine; Visit Provider Physician Assistant | DX: M46.1 Sacroiliitis, not elsewhere classified (principal); M85.88 Other specified disorders of bone density and structure, other site; M47.896 Other spondylosis, lumbar region | CPT/HCPCS: 72100; 72170; 99213 ==

== ENCOUNTER 2022-05-28 13:54 | Outpatient (CLI) | payer MEDICARE, OTHER, SELFPAY ==
--- NOTE | 2022-05-28 14:30 | XR_ITS ---
WS: [email or web address] DEXA (DUAL ENERGY X-RAY ABSORPTIOMETRY) Bone mineral density was performed using a Ombud machine. HISTORY: M81.0 - Age-related osteoporosis without current pathology... COMPARISON: None available. Lumbar spine BMD (L1-L4): 0.807 g/cm2 T score: -3.1 Z score: -1.1 Total hip BMD: Left: 0.656 g/cm2. T score: -2.8 Z score: -1.3 Right: 0.716 g/cm2. T score: -2.3 Z score: -0.8 10 year probability of a major osteoporotic fracture is 37.0%. XR/XR DEXA axial skeleton* [id number] IMPRESSION: OSTEOPOROSIS based upon the WHO classification for females.
== END 2022-05-28 13:55 | disposition home or self-care (01) ==
LOC: RAD 13:58
PROVIDERS: PCP Internal Medicine; Visit Provider Internal Medicine
DX: M81.0 Age-related osteoporosis without current pathological fracture (principal)
CPT/HCPCS: 77080

== ENCOUNTER 2022-05-29 06:00 | Outpatient (RCR) | payer MEDICARE, OTHER, MEDICAID, SELFPAY | END 2022-06-13 23:59 | disposition home or self-care (01) | LOC: TPT 06:00 | PROVIDERS: PCP Internal Medicine; Visit Provider Physician Assistant | DX: M54.50 Low back pain, unspecified (principal) | CPT/HCPCS: 97110; 97163 ==

== ENCOUNTER 2022-06-05 09:50 | Oncology outpatient (recurring) (ONCR) | payer MEDICARE, OTHER, MEDICAID, SELFPAY ==
[2022-05-17 10:20] VITALS: BP 110/78; PULSE 90; RESP 16; TEMP 37.1; O2SAT 96
[2022-06-05 11:03] LABS: Albumin Level 4.4 g/dL (3.5-5.2); Calcium 8.5 mg/dL (8.5-10.5)
[2022-06-05] MEDS: denosumab 60 mg SDV SUBCUT (14:00)
[2022-06-05 16:13] LABS: 25 Hydroxy Vitamin D 23 ng/mL (30-100)
== END 2022-06-13 23:59 | disposition home or self-care (01) ==
PROVIDERS: Internal Medicine Rheumatology; PCP Internal Medicine; Visit Provider Internal Medicine
DX: M81.0 Age-related osteoporosis without current pathological fracture (principal); Z79.899 Other long term (current) drug therapy
CPT/HCPCS: 36415; 82040; 82306; 82310; 82565; 96372; 96401; J0897

== ENCOUNTER 2022-06-14 06:00 | Outpatient (RCR) | payer MEDICARE, OTHER, SELFPAY | END 2022-07-13 23:59 | disposition home or self-care (01) | LOC: TPT 06:00 | PROVIDERS: PCP Internal Medicine; Visit Provider Physician Assistant | DX: M54.50 Low back pain, unspecified (principal) | CPT/HCPCS: 97110 ==

== ENCOUNTER → 2022-06-24 13:40 | Outpatient (BNVA) | payer MEDICARE, OTHER, SELFPAY | PROVIDERS: PCP Internal Medicine; Visit Provider Internal Medicine | DX: M81.0 Age-related osteoporosis without current pathological fracture (principal); Z79.52 Long term (current) use of systemic steroids | CPT/HCPCS: 99213 ==

== ENCOUNTER 2022-06-26 08:07 | Outpatient (CLI) | payer MEDICARE, OTHER, SELFPAY ==
--- NOTE | 2022-06-26 08:17 | MR_ITS ---
WS: [email or web address] MRI PELVIS without CONTRAST. COMPARISON: None Multiplanar, multisequence imaging is performed without contrast. No acute fractures or marrow edema. Normal appearance of the femoral heads. No joint effusion. No sig nal abnormality within the bony sacrum. The sacral nerve roots are normal. No free fluid in the pelvi s. Normally distended urinary bladder. There is a small amount of soft tissue edema in the posterior LEF T sacral soft tissues and muscles which is contiguous with the surgical site at L4-5. There is no foc al fluid collection. MR/MR pelvis wo con* [id number] IMPRESSION: 1. Soft tissue edema along the posterior LEFT sacrum is contiguous with the po stoperative changes at L4-5. There is no focal collection to suggest abscess or hematoma. Small amount of soft tissue edema which does involve the muscles. 2. No mass. 3. No marrow signal abnormality within the hips or sacrum.
--- NOTE | 2022-06-26 08:17 | MR_ITS ---
WS: [email or web address] MRI LUMBAR SPINE NONCONTRAST HISTORY: INCREASED POST OP PAIN, surgery in January 2022. RIGHT hip and groin pain. COMPARISON: 08/02/2021 TECHNIQUE: Sagittal and axial multisequence imaging is submitted. Normal lumbar alignment with no compression fractures or marrow edema. Disc spaces and vertebral body heights are well-preserved. Conus terminates normally at L1-2 disc level. L1-L2: Normal. L2-L3: Mild disc bulge as before. No stenosis. L3-L4: Normal. L4-L5: Mild annular disc bulging. Mild disc encroachment upon the ventral thecal sac and the traversi ng nerve roots. LEFT hemilaminectomy defect is new. Postsurgical changes noted in the soft tissues po steriorly on the LEFT. Small amount of fluid in the LEFT facet joint has progressed since the prior s tudy. Mild LEFT foraminal stenosis. L5-S1: Mild disc bulging and facet arthritis. No high-grade stenosis. Paravertebral soft tissues are normal. MR/MR lumbar spine wo con* [id number] IMPRESSION: 1. New LEFT hemilaminectomy defect at L4-5 since the prior study. Slight incre ased amount of fluid in the LEFT L4-5 facet joint. 2. Very minimal encroachment upon the ventral thecal sac at L4-5 and the trave rsing nerve roots. Less disc contact on the traversing RIGHT L5 nerve root. 3. Mild LEFT foraminal stenosis at L4-5.
== END 2022-06-26 08:08 | disposition home or self-care (01) ==
LOC: RAD 08:07
PROVIDERS: PCP Internal Medicine; Visit Provider Physician Assistant
DX: M47.818 Spondylosis without myelopathy or radiculopathy, sacral and sacrococcygeal region (principal); M48.062 Spinal stenosis, lumbar region with neurogenic claudication; R60.0 Localized edema; M48.061 Spinal stenosis, lumbar region without neurogenic claudication
CPT/HCPCS: 72148; 72195; 99213

== ENCOUNTER 2022-07-08 09:53 | Outpatient (CLI) | payer MEDICARE, OTHER, SELFPAY ==
--- NOTE | 2022-07-08 10:15 | MR_ITS ---
WS: [email or web address] MRI SACRUM without CONTRAST. COMPARISON: 06/26/2022 MRI pelvis. Multiplanar, multisequence imaging is performed without contrast. History: Progressive low back pain. Lumbar spine surgery 6 months ago. No marrow edema or fractures. SI joints are normal. No erosions. No sacral insufficiency fracture. Ag ain noted is the increased T2 signal in the paraspinal soft tissues on the LEFT. This is contiguous w ith the prior surgery from the L4-5 level. This was also described on 06/26/2022. No significant inter ellis change. There is no mass along the region of the sacral nerve roots. SI joints are negative. MR/MR sacrum wo con* [id number] IMPRESSION: 1. No sacral abnormality or SI joint abnormality identified. 2. Soft tissue edema again noted in the LEFT paraspinal soft tissues beginning at the site of prior surgery at L4-5. Postsurgical changes appear appropriate. If pain continues there may be added benefit in obtaining a postcontrast study of the lumbar spine. There is no obvious abscess or complication identified on this exam.
== END 2022-07-08 09:54 | disposition home or self-care (01) ==
LOC: RAD 09:55
PROVIDERS: PCP Internal Medicine; Visit Provider Physician Assistant
DX: M47.818 Spondylosis without myelopathy or radiculopathy, sacral and sacrococcygeal region (principal); M54.9 Dorsalgia, unspecified; M79.604 Pain in right leg
CPT/HCPCS: 72148

== ENCOUNTER → 2022-07-17 12:47 | Outpatient (BNVA) | payer MEDICARE, OTHER, SELFPAY | PROVIDERS: PCP Internal Medicine; Visit Provider Physician Assistant | DX: M48.062 Spinal stenosis, lumbar region with neurogenic claudication (principal); M47.818 Spondylosis without myelopathy or radiculopathy, sacral and sacrococcygeal region | CPT/HCPCS: 99213 ==

== ENCOUNTER → 2022-10-29 15:25 | Outpatient (BNVA) | payer MEDICARE, OTHER, SELFPAY | PROVIDERS: PCP Internal Medicine; Visit Provider Internal Medicine | DX: M81.0 Age-related osteoporosis without current pathological fracture (principal); M48.062 Spinal stenosis, lumbar region with neurogenic claudication; Z79.899 Other long term (current) drug therapy | CPT/HCPCS: 36415; 72040; 80053; 82306; 85025; 99214 ==

== ENCOUNTER → 2022-11-20 09:18 | Outpatient (BNVA) | payer MEDICARE, OTHER, SELFPAY | PROVIDERS: PCP Internal Medicine; Visit Provider Psychiatry & Neurology Neurology | DX: G43.719 Chronic migraine without aura, intractable, without status migrainosus (principal); E46 Unspecified protein-calorie malnutrition; R56.9 Unspecified convulsions | CPT/HCPCS: 36415; 82306; 82607; 82746; 83735; 83921; 84439; 84443; 84481; 99203 ==

== ENCOUNTER 2022-12-10 09:47 | Oncology outpatient (recurring) (ONCR) | payer MEDICARE, OTHER, SELFPAY ==
[2022-12-10] MEDS: denosumab 60 mg SDV SUBCUT (10:31)
[2022-12-10 10:34] VITALS: BP 110/67; PULSE 75; RESP 16; TEMP 36.4; O2SAT 94
== END 2022-12-13 23:59 | disposition home or self-care (01) ==
PROVIDERS: PCP Internal Medicine; Visit Provider Internal Medicine
DX: M81.0 Age-related osteoporosis without current pathological fracture (principal)
CPT/HCPCS: 96372; J0897

== ENCOUNTER 2022-12-22 10:56 | Outpatient (CLI) | payer MEDICARE, OTHER, SELFPAY ==
--- NOTE | 2022-12-22 11:16 | XRR_ITS ---
PROCEDURE INFORMATION: Exam: XR Abdomen Exam date and time: 12/22/2022 11:41 AM Age: 62 years old Clinical indication: Constipation; Abdominal pain; Generalized; Prior surgery; Surgery date: 6+ months; Surgery type: Hysto; Patient HX: HX of cervical and breast cancer; Additional info: Drug induced constipation w/proper administration TECHNIQUE: Imaging protocol: Radiologic exam of the abdomen. Views: 2 Views. Upright and supine views. COMPARISON: MR sacrum wo con* [id number] 07/08/2022 10:14 AM FINDINGS: Lungs: Lung bases are clear. Gastrointestinal tract: Moderate colonic stool burden. Nonobstructive bowel-gas pattern. Intraperitoneal space: Normal. No free air. Bones/joints: Osseous structures are within normal limits. XR/XR abdomen min 2V [id number] IMPRESSION: Moderate colonic stool burden.
== END 2022-12-22 10:57 | disposition home or self-care (01) ==
PROVIDERS: PCP Internal Medicine; Visit Provider Internal Medicine
DX: K59.03 Drug induced constipation (principal); T50.905A Adverse effect of unspecified drugs, medicaments and biological substances, initial encounter
CPT/HCPCS: 74019

== ENCOUNTER → 2023-01-14 12:39 | Outpatient (BNVA) | payer MEDICARE, OTHER, MEDICAID, SELFPAY | PROVIDERS: PCP Internal Medicine; Visit Provider Psychiatry & Neurology Neurology | DX: G43.019 Migraine without aura, intractable, without status migrainosus (principal); G40.919 Epilepsy, unspecified, intractable, without status epilepticus; R79.89 Other specified abnormal findings of blood chemistry; M79.674 Pain in right toe(s) | CPT/HCPCS: 99212; 99213 ==

== ENCOUNTER → 2023-01-15 15:11 | Outpatient (BNVA) | payer MEDICARE, OTHER, MEDICAID, SELFPAY | PROVIDERS: PCP Internal Medicine; Visit Provider Podiatrist Foot & Ankle Surgery | DX: G57.91 Unspecified mononeuropathy of right lower limb; M79.7 Fibromyalgia | CPT/HCPCS: 73630; 99203 ==

== ENCOUNTER → 2023-02-26 14:46 | Outpatient (BNVA) | payer MEDICARE, OTHER, SELFPAY | PROVIDERS: PCP Internal Medicine; Visit Provider Specialist | DX: M54.9 Dorsalgia, unspecified (principal); M79.604 Pain in right leg | CPT/HCPCS: 95908; 95909 ==

== ENCOUNTER 2023-03-10 13:15 | Oncology outpatient (recurring) (ONCR) | payer MEDICARE, OTHER, SELFPAY ==
[2023-02-18 11:55] LABS: Homocysteine 9.03
[2023-02-18 12:12] LABS: Vitamin B12 545 pg/mL (232-1245)
[2023-02-18 12:54] LABS: Folate Level > 20.0 ng/mL (4.8-37.3)
[2023-02-21 07:40] LABS: Methylmalonic Acid 184 nmol/L (87-318)
[2023-03-10 13:17] LABS: Basophils # 0.1 10^3/uL (0.0-0.1); Basophils % 0.5 %; Eosinophils # 0.2 10^3/uL (0.0-0.8); Eosinophils % 1.6 %; Hematocrit 43.8 % (36-47); Lymphocytes % 31.3 %; Mean Corpuscular HGB Conc 32.6 g/dL (30-55); Mean Corpuscular Hemoglobin 33.3 pg (27-33); Mean Corpuscular Volume 102.1 fl (85-98); Mean Platelet Volume 9.1 fL (7.4-10.4); Monocytes # 0.6 10^3/uL (0.2-0.9); Monocytes % 6.4 %; Neutrophils # 5.65 10^3/uL (1.8-7.7); Nucleated Red Blood Cells % 0 %; Platelet Count 235 10^3/cmm (157-399); Red Blood Count 4.29 10^6/uL (3.85-5.65); Red Cell Distribution Width 12.7 % (12.1-15.1); White Blood Count 9.42 10^3/uL (3.29-11.43)
[2023-03-10 13:41] LABS: Alanine Aminotransferase 14 U/L (0-33); Albumin Level 4.5 g/dL (3.5-5.2); Alkaline Phosphatase 75 U/L (35-105); Anion Gap 13.6 (5-19); Aspartate Amino Transferase 16 U/L (0-32); Blood Urea Nitrogen 9 mg/dL (8-23); Calcium 8.9 mg/dL (8.5-10.5); Carbon Dioxide 22 mmol/L (22-29); Chloride 110 mmol/L (98-107); Globulin 2.5 g/dL (1.3-4.6); Glomerular Filtration Rate 101.6 mL/min (90-130); Glucose 99 mg/dL (65-115); Lactate Dehydrogenase 146 U/L (135-214); Osmolality Calculated 293 mOsm/kg (285-295); Potassium 3.6 mmol/L (3.5-5.1); Sodium 142 mmol/L (136-145); Total Bilirubin 0.3 mg/dL (0.15-1.2)
[2023-03-10 13:57] LABS: Vitamin B12 741 pg/mL (232-1245)
[2023-03-13 09:10] LABS: Methylmalonic Acid 100 nmol/L (87-318)
[2023-03-15 16:49] LABS: Copper Level 110 mcg/dL (70-175)
== END 2023-03-15 23:59 | disposition home or self-care (01) ==
PROVIDERS: Internal Medicine Medical Oncology; PCP Internal Medicine; Visit Provider Internal Medicine Hematology & Oncology
DX: M81.0 Age-related osteoporosis without current pathological fracture (principal)
CPT/HCPCS: 36415; 80053; 82525; 82607; 82746; 83090; 83615; 83921; 85025; 99213

== ENCOUNTER 2023-03-12 09:42 | Outpatient (CLI) | payer MEDICARE, OTHER, SELFPAY ==
--- NOTE | 2023-03-12 10:03 | MM_ITS ---
WS: [email or web address] BILATERAL 3D TOMOSYNTHESIS DIGITAL DIAGNOSTIC MAMMOGRAPHY WITH CAD CLINICAL INFORMATION: Hx breast cancer HISTORY: History of RIGHT breast cancer. COMPARISON: 12/26/2021 TECHNIQUE: Bilateral CC, MLO, and ML views. FINDINGS: Scattered fibroglandular densities bilaterally. A few incidental punctate calcifications. No suspicious focal mass, asymmetry, calcifications, or architectural distortion. No evidence of megan gnancy. IMPRESSION: MM/[place] [id number] BI-RADS: 2-Benign FOLLOW UP: 1 Year Follow-up Recommend return to annual diagnostic mammography.
== END 2023-03-12 09:43 | disposition home or self-care (01) ==
PROVIDERS: PCP Internal Medicine; Visit Provider Psychiatry & Neurology Neurology
DX: M47.26 Other spondylosis with radiculopathy, lumbar region (principal); E53.8 Deficiency of other specified B group vitamins; Z85.3 Personal history of malignant neoplasm of breast
CPT/HCPCS: 77062; 99213; G0279

== ENCOUNTER → 2023-03-17 10:49 | Outpatient (BNVA) | payer MEDICARE, OTHER, SELFPAY | PROVIDERS: PCP Internal Medicine; Visit Provider Podiatrist Foot & Ankle Surgery | DX: M79.674 Pain in right toe(s); M79.7 Fibromyalgia; G57.91 Unspecified mononeuropathy of right lower limb | CPT/HCPCS: 99213 ==

== ENCOUNTER 2023-03-19 13:32 | Oncology outpatient (recurring) (ONCR) | payer MEDICARE, OTHER, SELFPAY ==
[2023-03-24 18:10] LABS: Intrinsic Factor Blocking AB NEGATIVE
[2023-03-25 02:14] LABS: Parietal Cell Antibody NEGATIVE (NEGATIVE)
== END 2023-04-15 23:59 | disposition home or self-care (01) ==
PROVIDERS: Internal Medicine; PCP Internal Medicine; Visit Provider Internal Medicine Hematology & Oncology
DX: M81.0 Age-related osteoporosis without current pathological fracture (principal); E46 Unspecified protein-calorie malnutrition; D75.89 Other specified diseases of blood and blood-forming organs; D51.0 Vitamin B12 deficiency anemia due to intrinsic factor deficiency; E53.8 Deficiency of other specified B group vitamins; R56.9 Unspecified convulsions
CPT/HCPCS: 36415; 86255; 86340; 99213

== ENCOUNTER 2023-03-31 16:16 | Outpatient (CLI) | payer MEDICARE, OTHER, SELFPAY ==
--- NOTE | 2023-03-31 16:32 | MR_ITS ---
WS: [email or web address] MRI LUMBAR SPINE NONCONTRAST TECHNIQUE: Sagittal T1, T2 and STIR imaging. Axial T1 and T2 imaging. CLINICAL INFORMATION: LBP COMPARISON: 06/26/2022 FINDINGS: Counting performed from the craniocervical junction. Grade 1 anterolisthesis L4 on L5. L5 is transiti onal. Prior LEFT hemilaminectomy L4-5. L1-L2: Normal. L2-L3: Mild annular bulging with slight narrowing of the RIGHT subarticular recess. Mild facet arthro aldair. Mild RIGHT foraminal narrowing. L3-L4: Minimal annular bulging. Mild facet arthropathy. Spinal canal and foramen are patent. L4-L5: Grade 1 anterolisthesis L4 on L5. Moderate facet arthropathy. Prior LEFT hemilaminectomy with edema in the LEFT L4-5 facet unchanged compared to previous. Mild bilateral foraminal narrowing uncha nged. Slight narrowing of the LEFT greater than RIGHT subarticular recess. L5-S1: L5 is transitional. Mild annular bulging. Slight effacement of the ventral thecal sac. Slight encroachment traversing S1 nerve roots. Spinal canal and foramen are patent. Mild facet arthropathy. Visualized pelvic bony structures: Normal. Paravertebral soft tissues: Normal. IMPRESSION: 1. Mild lumbar curve. No acute compression. Grade 1 anterolisthesis L4 and L5 slightly increased com pared to previous. 2. L5 is transitional. Counting performed from the craniocervical junction. 3. Prior postoperative changes LEFT L4-5 hemilaminectomy. Slight narrowing of the LEFT greater than RIGHT subarticular recess at this level. 4. Moderate facet arthropathy L4-L5 with edema in the LEFT L4-5 facet unchanged. 5. Narrowing RIGHT subarticular recess L2-3 with slight encroachment traversing RIGHT L3 nerve root. This appears progressed compared to previous. Mild RIGHT L2-3 foraminal narrowing.
== END 2023-03-31 16:17 | disposition home or self-care (01) ==
LOC: RAD 16:16
PROVIDERS: PCP Internal Medicine; Visit Provider Physician Assistant
DX: M43.16 Spondylolisthesis, lumbar region; M47.816 Spondylosis without myelopathy or radiculopathy, lumbar region; M48.061 Spinal stenosis, lumbar region without neurogenic claudication
CPT/HCPCS: 72148

== ENCOUNTER 2023-04-21 11:46 | Oncology outpatient (recurring) (ONCR) | payer MEDICARE, OTHER, SELFPAY | END 2023-05-14 23:59 | disposition home or self-care (01) | PROVIDERS: PCP Internal Medicine; Visit Provider Internal Medicine Hematology & Oncology | DX: Z09 Encounter for follow-up examination after completed treatment for conditions other than malignant neoplasm; M48.062 Spinal stenosis, lumbar region with neurogenic claudication | CPT/HCPCS: 99214 ==

== ENCOUNTER → 2023-04-27 13:04 | Outpatient (BNVA) | payer MEDICARE, OTHER, SELFPAY | PROVIDERS: PCP Internal Medicine; Visit Provider Psychiatry & Neurology Neurology | DX: G43.711 Chronic migraine without aura, intractable, with status migrainosus (principal); G40.919 Epilepsy, unspecified, intractable, without status epilepticus; E55.9 Vitamin D deficiency, unspecified | CPT/HCPCS: 99212 ==

== ENCOUNTER → 2023-05-19 12:58 | Outpatient (BNVA) | payer MEDICARE, OTHER, SELFPAY | PROVIDERS: PCP Internal Medicine; Visit Provider Podiatrist Foot & Ankle Surgery | DX: L60.0 Ingrowing nail (principal); G57.91 Unspecified mononeuropathy of right lower limb; M79.7 Fibromyalgia; L60.3 Nail dystrophy | CPT/HCPCS: 11750; A6219 ==

== ENCOUNTER → 2023-06-02 09:30 | Outpatient (BNVA) | payer MEDICARE, OTHER, SELFPAY | PROVIDERS: PCP Internal Medicine; Visit Provider Podiatrist Foot & Ankle Surgery | DX: G57.90 Unspecified mononeuropathy of unspecified lower limb; M79.7 Fibromyalgia; L60.3 Nail dystrophy | CPT/HCPCS: 99213 ==

== ENCOUNTER → 2023-06-11 12:43 | Outpatient (BNVA) | payer MEDICARE, OTHER, SELFPAY | PROVIDERS: PCP Internal Medicine; Visit Provider Podiatrist Foot & Ankle Surgery | DX: M79.7 Fibromyalgia; L60.3 Nail dystrophy; G57.91 Unspecified mononeuropathy of right lower limb | CPT/HCPCS: 99213 ==

== ENCOUNTER 2023-06-29 09:55 | Oncology outpatient (recurring) (ONCR) | payer MEDICARE, OTHER, SELFPAY ==
[2023-06-29 10:49] LABS: Alanine Aminotransferase 9 U/L (0-33); Albumin Level 4.1 g/dL (3.5-5.2); Alkaline Phosphatase 62 U/L (35-105); Aspartate Amino Transferase 16 U/L (0-32); Blood Urea Nitrogen 7 mg/dL (8-23); Carbon Dioxide 21 mmol/L (22-29); Chloride 108 mmol/L (98-107); Ferritin 69 ng/mL (15-150); Globulin 2.5 g/dL (1.3-4.6); Glomerular Filtration Rate 101.6 mL/min (90-130); Glucose 91 mg/dL (65-115); Iron 85 ug/dL (37-145); Osmolality Calculated 284 mOsm/kg (285-295); Percent Saturation 32.5 % (20-50); Sodium 138 mmol/L (136-145); Total Bilirubin 0.2 mg/dL (0.15-1.2); Total Iron Binding Capacity 261 mcg/dl; Total Protein 6.6 g/dL (6.6-8.7); Unsaturated Iron Binding 176 ug/dL (112-347)
[2023-06-29 10:51] LABS: Basophils # 0.1 10^3/uL (0.0-0.1); Basophils % 0.9 %; Eosinophils # 0.2 10^3/uL (0.0-0.8); Eosinophils % 2.3 %; Hematocrit 39.9 % (36-47); Lymphocytes # 2.5 10^3/uL (0.8-4.8); Lymphocytes % 36.2 %; Mean Corpuscular HGB Conc 32.1 g/dL (30-55); Mean Corpuscular Hemoglobin 33.1 pg (27-33); Mean Corpuscular Volume 103.1 fl (85-98); Mean Platelet Volume 10.1 fL (7.4-10.4); Monocytes # 0.5 10^3/uL (0.2-0.9); Monocytes % 6.7 %; Neutrophils # 3.74 10^3/uL (1.8-7.7); Neutrophils % 53.6 %; Nucleated Red Blood Cells % 0 %; Platelet Count 233 10^3/cmm (157-399); Red Blood Count 3.87 10^6/uL (3.85-5.65); Red Cell Distribution Width 13.1 % (12.1-15.1); White Blood Count 6.97 10^3/uL (3.29-11.43)
[2023-06-29 10:56] LABS: Anion Gap 12.8 (5-19); Potassium 3.8 mmol/L (3.5-5.1)
[2023-06-29 11:05] LABS: Vitamin B12 449 pg/mL (232-1245)
[2023-06-29 11:20] LABS: Folate Level 19.7 ng/mL (4.8-37.3)
[2023-06-29] MEDS: denosumab 60 mg SDV SUBCUT (12:13)
[2023-07-02 09:00] LABS: Methylmalonic Acid 284 nmol/L (87-318)
== END 2023-07-14 23:59 | disposition home or self-care (01) ==
PROVIDERS: Internal Medicine; PCP Internal Medicine; Visit Provider Internal Medicine Hematology & Oncology
DX: M81.0 Age-related osteoporosis without current pathological fracture (principal); E46 Unspecified protein-calorie malnutrition; D75.89 Other specified diseases of blood and blood-forming organs; D51.0 Vitamin B12 deficiency anemia due to intrinsic factor deficiency; E53.8 Deficiency of other specified B group vitamins; R56.9 Unspecified convulsions
CPT/HCPCS: 36415; 80053; 82607; 82728; 82746; 83540; 83550; 83921; 85025; 96372; 99213; J0897

== ENCOUNTER 2023-08-24 10:00 | Outpatient (CLI) | payer MEDICARE, OTHER, SELFPAY | END 2023-08-24 10:01 | disposition home or self-care (01) | LOC: RAD 11-18 10:05 | PROVIDERS: PCP Internal Medicine; Visit Provider Psychiatry & Neurology Neurology | DX: G45.9 Transient cerebral ischemic attack, unspecified (principal) | CPT/HCPCS: 36415; 80061 ==

== ENCOUNTER → 2023-08-24 13:06 | Outpatient (BNVA) | payer MEDICARE, OTHER, SELFPAY | PROVIDERS: PCP Internal Medicine; Visit Provider Psychiatry & Neurology Neurology | DX: G43.711 Chronic migraine without aura, intractable, with status migrainosus (principal); G40.919 Epilepsy, unspecified, intractable, without status epilepticus; R22.9 Localized swelling, mass and lump, unspecified; Z86.73 Personal history of transient ischemic attack (TIA), and cerebral infarction without residual deficits | CPT/HCPCS: 99213 ==

== ENCOUNTER → 2023-09-02 07:58 | Outpatient (CLI) | payer MEDICARE, OTHER, SELFPAY ==
--- NOTE | 2023-09-02 08:30 | USCV_ITS ---
RowlandBeth dorantes Age: 63 Gender: F : 1960 Exam Date: 09/02/2023 09:09 Ordering Phys: Raffi Gomez MD Technologist: CT Exam Location: [facility]_ Indication: tia Risk Factors: Previous Vascular Surgery: Right Brachial BP: / Left Brachial BP: / Right Left Velocity (cm/s) Spectral Plaque Velocity (cm/s) Spectral Plaque Syst/Diast Broadening Syst/Diast Broadening 55.20/ 21.30 Prox CCA 64.90 / 27.00 68.30/ 26.20 Mid CCA 61.70 / 25.50 70.40/ 31.50 Distal CCA 61.30 / 30.60 47.00/ 19.80 Prox ICA 81.90 / 40.00 67.60/ 33.70 Mid ICA 83.60 / 33.40 72.00/ 33.50 Distal ICA 80.70 / 31.90 46.10 ECA 51.60 1.00 ICA/CCA 1.40 Antegrade Vertebral Antegrade 40.50/ 15.20 cm/s 51.20/ 20.40 cm/s Tri Subclavian Tri 51.40 39.30 CONCLUSIONS Right ICA stenosis <50%. Moderate calcified atheromatous plaque right carotid bulb/ICA. Left ICA stenosis <50%. Intimal thickening in the common carotid arteries and internal carotid arteries bilaterally. Normal antegrade Doppler flow noted in the right vertebral artery. Normal antegrade Doppler flow noted in the left vertebral artery. Stan Ross MD (Electronically Signed) Final Date: 02 September 2023 10:00 S
--- NOTE | 2023-09-02 09:00 | USCV_ITS ---
Beth Rowland Age: 63 Gender: F : 1960 Exam Date: 09/02/2023 08:29 Ordering Phys: Raffi Gomez MD Technologist: CT Exam Location: [facility] [place]_ Indication: Tia BP: 109 / 75 HR: 63 Rhythm: Sinus Technical Quality: Adequate MEASUREMENTS (Male / Female) Normal Values 2D ECHO LVOT Diameter 2.0 cm LV Ejection Fraction MOD 2C 67.9 % LV Ejection Fraction 2C AL 68.3 % LA Diameter 2.0 cm RA Systolic Volume 4C AL 26.8 ml RA Systolic Volume 4C MOD 26.2 ml LA Sys Volume AL 26.1 cm cubed LA Sys Volume Index AL 21.0 cm cubed/m squared Aorta at Sinotubular Diameter 2.4 cm IVC Diameter 2.4 cm M-MODE LA Ao Ratio MM 1.1 AV Cusp Separation MM 2.0 cm DOPPLER AV Peak Velocity 102.0 cm/s LVOT Peak Velocity 97.0 cm/s AV Area Cont Eq vti 3.3 cm squared AV Area Cont Eq pk 3.1 cm squared MV Peak Velocity 95.0 cm/s MV Area PHT 3.9 cm squared Mitral E to A Ratio 1.0 TV Peak Velocity 209.5 cm/s TR Peak Velocity 211.0 cm/s TR Peak Gradient 17.8 mmHg TV Peak E Velocity 87.0 cm/s Right Atrial Pressure 3.0 mmHg Pulmonary Artery Systolic Pressu 20.8 mmHg PV Peak Velocity 79.0 cm/s FINDINGS Left Ventricle Normal left ventricular size, systolic function and wall thickness, with no regional wall motion abnormalities. Left ventricular ejection fraction is estimated at 60 %. Normal diastolic filling pattern. Right Ventricle The right ventricle is normal in size and function. Right Atrium The right atrium is normal in size. Left Atrium The left atrium is normal in size. Mitral Valve Structurally normal mitral valve without significant stenosis or prolapse. There is mild mitral regurgitation. Aortic Valve Structurally normal aortic valve without significant sclerosis or stenosis. There is trace aortic regurgitation. Tricuspid Valve Structurally normal tricuspid valve without significant stenosis, mild regurgitation. Pulmonary artery systolic pressure is normal. Pulmonic Valve Structurally normal pulmonic valve without significant stenosis. There is no pulmonic regurgitation. Pericardium Normal pericardium without effusion. Aorta Normal ascending aorta dimension. IVC The inferior vena cava appears normal. CONCLUSIONS 1-Normal left ventricular size, systolic function and wall thickness, with no regional wall motion abnormalities. Left ventricular ejection fraction is estimated at 60 %. Normal diastolic filling pattern. 2-Structurally normal mitral valve without significant stenosis or prolapse. There is mild mitral regurgitation. 3-There is no pericardial effusion. 4-Right atrial pressure is around 5 mm of mercury. June Centeno MD (Electronically Signed) Final Date: 02 September 2023 22:33 S
== END | disposition home or self-care (01) ==
LOC: RAD 07:57
PROVIDERS: PCP Internal Medicine; Visit Provider Psychiatry & Neurology Neurology
DX: G40.919 Epilepsy, unspecified, intractable, without status epilepticus (principal); G43.711 Chronic migraine without aura, intractable, with status migrainosus; I63.9 Cerebral infarction, unspecified; I65.23 Occlusion and stenosis of bilateral carotid arteries
CPT/HCPCS: 93306; 93880

== ENCOUNTER 2023-09-07 06:00 | Outpatient (RCR) | payer MEDICARE, OTHER, SELFPAY | END 2023-09-13 23:59 | disposition home or self-care (01) | LOC: TST 06:00 | PROVIDERS: PCP Internal Medicine; Visit Provider Psychiatry & Neurology Neurology | DX: Z86.73 Personal history of transient ischemic attack (TIA), and cerebral infarction without residual deficits (principal) | CPT/HCPCS: 92523 ==

== ENCOUNTER 2023-09-14 06:00 | Outpatient (RCR) | payer MEDICARE, OTHER, SELFPAY | END 2023-09-28 23:56 | disposition home or self-care (01) | LOC: TST 06:00 | PROVIDERS: PCP Internal Medicine; Visit Provider Psychiatry & Neurology Neurology | DX: I63.9 Cerebral infarction, unspecified (principal); G45.9 Transient cerebral ischemic attack, unspecified | CPT/HCPCS: 92507 ==

== ENCOUNTER 2023-09-15 10:10 | Outpatient (CLI) | payer MEDICARE, OTHER, SELFPAY ==
--- NOTE | 2023-09-15 10:15 | MR_ITS ---
WS: [email or web address] MRI HEAD WITHOUT CONTRAST TECHNIQUE: Sagittal T1, T2 axial, T2 axial FLAIR, axial and coronal T1 images, axial susceptibility w eighted imaging, axial diffusion weighted images, and coronal T2 images were obtained. CLINICAL INFORMATION: G45.9 - Transient cerebral ischemic attack, unspecified COMPARISON: MRI 2020 FINDINGS: No evidence of restricted diffusion to suggest acute ischemia. Ventricular system and basal cisterns are patent. Minimal small vessel changes. Mild parenchymal volume loss. Normal posterior fossa. Sharon l vascular flow voids at the skull base. No extra-axial fluid collections. No evidence of mass or mass effect. Small retention cysts in the RIGHT maxillary sinus. Paranasal sin uses and mastoid air cells are well aerated. Normal posterior nasopharynx. No hemosiderin on susceptibility-weighted images. Normal optic chiasm and pituitary infundibulum. Tem poral lobes and hippocampal formations are normal in appearance. MR/MR head wo con* [id number] IMPRESSION: 1. No evidence of restricted diffusion to suggest acute ischemia. 2. Minimal small vessel changes. Mild parenchymal volume loss. 3. No hemosiderin on the susceptibly weighted images. 4. No other acute findings.
== END 2023-09-15 10:11 | disposition home or self-care (01) ==
LOC: RAD 10:10
PROVIDERS: PCP Internal Medicine; Visit Provider Psychiatry & Neurology Neurology
DX: G45.9 Transient cerebral ischemic attack, unspecified (principal); I63.9 Cerebral infarction, unspecified
CPT/HCPCS: 70551

== ENCOUNTER → 2023-09-22 14:05 | Outpatient (BNVA) | payer MEDICARE, OTHER, SELFPAY | PROVIDERS: PCP Internal Medicine; Visit Provider Psychiatry & Neurology Neurology | DX: G43.711 Chronic migraine without aura, intractable, with status migrainosus (principal); G40.919 Epilepsy, unspecified, intractable, without status epilepticus | CPT/HCPCS: 99212 ==

== ENCOUNTER → 2023-12-10 06:43 | Outpatient (BNVA) | payer MEDICARE, OTHER, SELFPAY | PROVIDERS: PCP Internal Medicine; Referring Provider Psychiatry & Neurology Neurology; Visit Provider Psychiatry & Neurology Neurology | DX: G40.919 Epilepsy, unspecified, intractable, without status epilepticus (principal); G43.711 Chronic migraine without aura, intractable, with status migrainosus; L60.3 Nail dystrophy; G45.9 Transient cerebral ischemic attack, unspecified; M47.26 Other spondylosis with radiculopathy, lumbar region; E53.8 Deficiency of other specified B group vitamins; G47.00 Insomnia, unspecified; D75.89 Other specified diseases of blood and blood-forming organs; E46 Unspecified protein-calorie malnutrition; M79.7 Fibromyalgia; M54.9 Dorsalgia, unspecified; M79.604 Pain in right leg; M79.674 Pain in right toe(s); M47.818 Spondylosis without myelopathy or radiculopathy, sacral and sacrococcygeal region; J45.909 Unspecified asthma, uncomplicated; M81.0 Age-related osteoporosis without current pathological fracture | CPT/HCPCS: 36415; 80053; 80177; 80201; 81241; 82306; 82746; 83735; 84439; 84443; 84481; 85025; 85210; 85300; 85303; 85306; 85613; 85730; 95819; 99212; 99214 ==

== ENCOUNTER 2024-01-07 13:00 | Oncology outpatient (recurring) (ONCR) | payer MEDICARE, OTHER, SELFPAY ==
[2024-01-05 12:49] LABS: Basophils # 0.1 10^3/uL (0.0-0.1); Basophils % 1.1 %; Eosinophils # 0.3 10^3/uL (0.0-0.8); Eosinophils % 3.9 %; Hematocrit 42.8 % (36-47); Lymphocytes # 2.6 10^3/uL (0.8-4.8); Lymphocytes % 35.3 %; Mean Corpuscular HGB Conc 32.5 g/dL (30-55); Mean Corpuscular Hemoglobin 33.7 pg (27-33); Mean Corpuscular Volume 103.9 fl (85-98); Mean Platelet Volume 9.5 fL (7.4-10.4); Monocytes # 0.4 10^3/uL (0.2-0.9); Monocytes % 5.5 %; Neutrophils # 4.02 10^3/uL (1.8-7.7); Neutrophils % 53.9 %; Nucleated Red Blood Cells % 0 %; Platelet Count 206 10^3/cmm (157-399); Red Blood Count 4.12 10^6/uL (3.85-5.65); Red Cell Distribution Width 13.9 % (12.1-15.1); White Blood Count 7.45 10^3/uL (3.29-11.43)
[2024-01-05 13:19] LABS: Alanine Aminotransferase 14 U/L (0-33); Albumin Level 4.3 g/dL (3.5-5.2); Alkaline Phosphatase 69 U/L (35-105); Anion Gap 14.4 (5-19); Aspartate Amino Transferase 19 U/L (0-32); Blood Urea Nitrogen 9 mg/dL (8-23); Calcium 8.9 mg/dL (8.5-10.5); Carbon Dioxide 22 mmol/L (22-29); Chloride 108 mmol/L (98-107); Creatinine Clr Calc Pharmacy 57.1101; Glomerular Filtration Rate 101.6 mL/min (90-130); Glucose 89 mg/dL (65-115); Osmolality Calculated 288 mOsm/kg (285-295); Potassium 4.4 mmol/L (3.5-5.1); Sodium 140 mmol/L (136-145); Total Bilirubin 0.3 mg/dL (0.15-1.2); Total Protein 6.3 g/dL (6.6-8.7)
[2024-01-05 13:26] LABS: Folate Level 16.3 ng/mL (4.8-37.3)
[2024-01-05 17:11] LABS: Vitamin B12 793 pg/mL (232-1245)
--- NOTE | 2024-01-07 13:00 | MR_ITS ---
WS: [email or web address] MRA CAROTID ARTERIES HISTORY: G45.9 - Transient cerebral ischemic attack, unspecified COMPARISON: Carotid ultrasound 09/02/2023 TECHNIQUE: MRA is performed with intravenous gadolinium. MIP and source images are reviewed. Limited by venous contamination and motion artifact. Right: No high-grade stenosis identified. Overlapping venous contamination. Normal diameter of the co mmon, internal and external carotid arteries. Left: No high-grade stenosis identified. Normal diameter of the common, internal and external carotid arteries. Subclavian Arteries: Bilateral subclavian arteries are normal. Vertebral Arteries: Incompletely visualized due to overlying contamination but the vertebral arteries do appear patent. MR/MR angio neck w con* [id number] IMPRESSION: No high-grade cervical carotid artery stenosis identified. Study is compromised by venous contamination and swallowing artifact.
[2024-01-07] MEDS: gadobenate dimeglumine 20 mL vial 10 ML IV (13:28)
--- NOTE | 2024-01-07 13:45 | MR_ITS ---
WS: [email or web address] MRA ANGIOGRAPHY [place] OF [place] HISTORY: G45.9 - Transient cerebral ischemic attack, unspecified COMPARISON: None available. TECHNIQUE: 3-D MR angiography is performed of the [place]. All images are reviewed including source images. Distal vertebral and basilar arteries are intact with no significant stenosis or plaque. Posterior ce rebral arteries are normal course and caliber. Posterior communicating arteries are identified. LEFT is hypoplastic. Intracranial portion of the internal carotid arteries are normal course and caliber. No significant a therosclerosis, stenosis or aneurysm identified. Middle and anterior cerebral arteries are both paten t with no significant disease. Anterior communicating artery is also normal. MR/MR angio head wo con [id number] IMPRESSION: Normal MRA [place].
--- NOTE | 2024-01-07 13:45 | MR_ITS ---
WS: [email or web address] MRI BRAIN WITHOUT CONTRAST HISTORY: G44.53 - Primary thunderclap headache COMPARISON: None available. TECHNIQUE: Diffusion imaging, multiplanar T1, T2 and FLAIR imaging obtained. No evidence for acute infarct or hemorrhage. South-white matter differentiation is normal. No remote or acute infarcts are volume loss. Single tiny focus of increased T2 signal in the LEFT kerri trum semiovale. Ventricles and extra-axial spaces are normal. No inferior displacement of cerebellar tonsils. The sella turcica and pituitary gland are unremarkabl e. Dural venous sinuses and [place] demonstrate no abnormality on this unenhanced studies. Paranasal sinuses: Clear. Mastoid air cells: Normal. Calvarium and scalp: Intact. MR/MR head wo con* [id number] IMPRESSION: 1. Unremarkable noncontrast MRI brain. 2. No prior infarcts or edema. 3. Normal ventricles.
[2024-01-09 17:14] LABS: Methylmalonic Acid 129 nmol/L (69-390)
== END 2024-01-14 23:59 | disposition home or self-care (01) ==
LOC: RAD 01-08 → ONCMED 01-11 10:32
PROVIDERS: Internal Medicine; PCP Internal Medicine; Visit Provider Psychiatry & Neurology Neurology
DX: G44.53 Primary thunderclap headache; G47.19 Other hypersomnia; G40.919 Epilepsy, unspecified, intractable, without status epilepticus; I65.29 Occlusion and stenosis of unspecified carotid artery; Z53.9 Procedure and treatment not carried out, unspecified reason
CPT/HCPCS: 36415; 70544; 70548; 70551; 80053; 82607; 82746; 83921; 85025; 99214; A9577

== ENCOUNTER 2024-01-26 14:04 | Oncology outpatient (recurring) (ONCR) | payer MEDICARE, OTHER, SELFPAY ==
--- OUTSIDE RECORDS SUMMARY | 2024-01-26 14:07 | XMS_ITS ---
Author Name Unknown Organization [facility] Address [address] [place] [address] Care Team Providers Care Product Promoter Retail Pet Name Role Phone Tam Ramos Primary Care Provider Allergies Allergen (clinical drug ingredient) Drug/Non Drug Allergy documented on EMR Reaction Allergy Type Onset Date Status codeine Codeine vomiting Drug Allergy Active REASON FOR VISIT 3 month f/u Medications Medication SIG (Take, Route, Frequency, Duration) Notes Start Date End Date Status B-12 1000 MCG 1 tablet under the tongue and allow to dissolve Sublingual Once a day Active Xtampza ER 27 mg TAKE ONE CAPSULE BY MOUTH EVERY TWELVE HOURS with food FOR 30 days for 30 12/30/2023 Active Prolia 60 MG/ML as directed Subcutaneous Every 6 months Active Qulipta 30 MG 1 tablet Orally Once a day Active Breztri Aerosphere 160-9-4.8 MCG/ACT inhale 2 puffs into lungs TWICE DAILY for 30 Active Melatonin 5 MG 2 capsules Orally On ce a day Not-Taking hydrOXYzine HCl 50 mg TAKE ONE TABLET BY MOUTH At Bedtime for 30 Not-Taki ng Sysn-Ip-Sebv-FA-Omeg w/o A 30-1-470 MG 1 capsule Orally Once a day Not-Taking Ubrogepant 100 MG 1 tablet may take second dose at least 2 hours after first dose as needed Orally Once a day for 30 days Not-Taking Milnacipran HCl 25 MG 2 tablets Orally T wice a day Not-Taking Rizatriptan Benzoate 10 mg take 1 tablet by mouth at onset of headache; if no relief may repeat 1 tablet after at least 2 hrs; max = 2 tabs/24 hours for 30 Not-Taking Aimovig 140 mg/mL inject 140mg SUBCUTANEOUSLY ONCE monthly for 30 Active Desvenlafaxine Succinate ER 25 MG 1 tablet as needed Orally Once a day for 30 days 04/08/2022 Not-Taking LORazepam 1 MG 1 tablet at bedtime as needed Orally Twice a day Not-Taking Denosumab 60 MG/ML as directed Subcutaneous Not-Taking Albuterol Sulfate HFA 108 (90 Base) MCG/ACT 1 puff as needed Inhalation every 4 hrs Not-Takin g Topiramate 50 mg TAKE ONE TABLET BY MOUTH TWICE DAILY for 30 Not-Taking Benzonatate 200 MG 1 capsule Orally Thr ee times a day Not-Taking Topiramate 200 mg TAKE ONE TABLET BY MOUTH TWICE DAILY for 30 Not-Taking Vitamin B12 1000 MCG 5 Sublingual daily Not-Taking Cholecalciferol 1.25 MG (61208 UT) as directed Orally Weekly Active Nurtec 75 MG 1 tablet on the tong ue and allow to dissolve Orally every 24 hours Not-Taking Crestor 20 MG 1 tablet Orally Once a day Not-Taking Nebulizer Mask Adult - as directed Not-Taking Vitamin B12 3000 MCG/ML as directed Subl ingual Monthly Active Ipratropium [place] 0.06 % instill TWO SPRAYS into each nostril THREE TIMES DAILY for 30 Active levETIRAcetam 500 mg TAKE THREE TABLETS Orally Once a day for 30 days Active Zolpidem Tartrate ER 12.5 mg TAKE ONE TABLET BY MOUTH EVERY NIGHT AT BEDTIME NEEDED for 30 12/22/2023 Active Albuterol Sulfate (2.5 MG/3ML) 0.083% 3 mL as needed Inhalation every 6 hrs for 30 days Active Social History Tobacco Use: Social History Observation Description Date Details (start date - stop date) Current Smoker NA - NA xTobacco Use/Smoking Question Answer Notes Are you a current smoker How often do you smoke cigarettes? some days, bu t not every day How many cigarettes a day do you smoke? 11-20 PHQ-9 Question Answer Notes Little interest or pleasure in doing things Zuleyma ral days Feeling down, depressed, or hopeless Several day s Trouble falling or staying asleep, or sleeping t oo much More than half the days Feeling tired or having little energy Several da ys Poor appetite or overeating More than half the d ays Feeling bad about yourself, or that you are a failure, or have let yourself or your family down Not at all Trouble concentrating on thi ngs, such as reading the newspaper or watching television Not at all Moving or speaking so slowly that other people could have noticed. Or the opposite ? being so fidgety or restless that you have been moving around a lot more than usual Not at all Thoughts that you would be b jose off , or of hurting yourself in some way Not at all Total Score 7 Interpretation Mild Depression AUDIT-C (Standard) Question Answer Notes Did you have a drink containing alcohol in the p ast year? 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.A09 ; B12 deficiency E53.8 ; Primary hypertension I10 ; Tobacco abuse Z72.0 and Depression screen Z13.31 Assessments Encounter Date Diagnosis (ICD Code) Assessment Notes Treat ment Notes Treatment Clinical Notes 12/30/2023 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 - G40.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) 12/30/2023 B12 deficiency (ICD-10 - E53.8) 12/30/2023 Primary hypertension (ICD-10 - I10) 12/30/2023 Tobacco abuse (ICD-1 0 - Z72.0) 12/30/2023 Depression screen (ICD-10 - Z13.31) Plan Of Treatment Medication Medication Name Sig Start Date Stop Date Notes Xtampza ER 27 mg TAKE ONE CAPSULE BY MOUTH EVERY TWELVE HOURS with food FOR 30 days for 30 12/30/2023 Next Appt Details Follow Up: 3 Months, Reason: Provider Name:Tam Ramos, 03/29/2024 02:00:00 PM, [address], [address], Progress Notes * Julissa ROWLANDOB:1960 (63 yo F)Acc No.[id number]:12/30/2023 Progress Notes Patient:?Beth ROWLAND Provider:?Tam Ramos MD :1960???Age:63 Y???Sex:Female D ate:12/30/2023 Address:[address] [place] [address] [address], [id number] Check Out:03:23 PM 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 Patient here for follow up - cough - wheezing - wants to talk about a blood test (Compliment CH50) is greater than 60 - has had a mini stroke 11/20/23. * ROS:?General/Constitutional:?Patient denies?fatigue , fever , night sweats.?Hematology:?Patient denies?easy bruising , bleeding problems , recent transfusion.?Respiratory:?Patient denies?shortness of breath?.?Admits?Wheezing.?Admits?Cough.?Cardiovascular:?Patient denies?chest pain , irregular heartbeat , swelling in hands/feet.?Gastrointestinal:?Patient denies?abdominal pain, bloating , constipation , diarrhea , heartburn , blood in stool , nausea , vomiting.?Genitourinary:?Patient denies?painful urination , blood in the urine , difficulty urinating.?ENT:?Patient denies?ear pain , nosebleed, runny nose,?sore throat.?Musculoskeletal:?Patient denies?arthritis\arthralgia , back pain , joint stiffness , muscle aches.?Skin:?Patient denies?skin lesion(s) , rash , acne.?Neurologic:?Patient denies?dizziness , fainting , headache , memory loss , seizures.?Psychiatric:?Patient denies?anxiety , depressed mood , difficulty sleeping , suicidal thoughts.?lab test. * Medical History:? * Surgical History:?none back surgery * Hospitalization/Major Diagno stic Procedure:?see surgical hx * Family History:?Father: dece ased, colon cancer.?Mother: , breast cancer.? * Social History:?Tobacco Use:?xTobacco Use/Smoking?Are you a?current smoker ?How often do you smoke cigarettes??some days, but not every day ?How many cigarettes a day do you smoke??11-20 ???Drugs/Alcohol:?Drugs?Have you used drugs other than those for medical reasons in the past 12 months??No ???Depression Screening:?PHQ-9?Little interest or pleasure in doing things?Several days ?Feeling down, depressed, or hopeless?Several days ?Trouble falling or staying asleep, or sleeping too much?More than half the days ?Feeling tired or having little energy?Several days ?Poor appetite or overeating?More than half the days ?Feeling bad about yourself, or that you are a failure, or have let yourself or your family down?Not at all ?Trouble concentrating on things, such as reading the newspaper or watching television?Not at all ?Moving or speaking so slowly that other people could have noticed. Or the opposite ? being so fidgety or restless that you have been moving around a lot more than usual?Not at all ?Thoughts that you would be better off , or of hurting yourself in some way?Not at all ?Total Score?7 ?Interpretation?Mild Depression ?Depression screening findings?Findings?Positive (5+ without suicidality) Completed 12/29/23 ???Drug/Alcohol:?AUDIT-C (Standard)?Did you have a drink containing alcohol in the past year??No ?Points?0 ?Interpretation?Negative ???12/29/23. * Medications:?TakingProlia 60 MG/ML Solution Prefilled Syringe as directed Subcutaneous Every 6 months B-12 1000 MCG Tablet Sublingual 1 tablet under the tongue and allow to dissolve Sublingual Once a day Qulipta 30 MG Tablet 1 tablet Orally Once a day Breztri Aerosphere 160-9-4.8 MCG/ACT Aerosol inhale 2 puffs into lungs TWICE DAILY Ipratropium [place] 0.06 % Solution instill TWO SPRAYS into each nostril THREE TIMES DAILY levETIRAcetam 500 mg Tablet TAKE THREE TABLETS Orally Once a day Xtampza ER 27 mg Capsule ER 12 Hour Abuse-Deterrent TAKE ONE CAPSULE BY MOUTH EVERY TWELVE HOURS with food FOR 30 days Albuterol Sulfate (2.5 MG/3ML) 0.083% Nebulization Solution 3 mL as needed Inhalation every 6 hrs Zolpidem Tartrate ER 12.5 mg Tablet Extended Release TAKE ONE TABLET BY MOUTH EVERY NIGHT AT BEDTIME NEEDED Vitamin B12 3000 MCG/ML Liquid as directed Sublingual Monthly Cholecalciferol 1.25 MG (09466 UT) Capsule as directed Orally Weekly Aimovig 140 mg/mL Solution Auto-injector inject 140mg SUBCUTANEOUSLY ONCE monthly Taking Prolia 60 MG/ML Solution Prefilled Syringe as directed Subcutaneous Every 6 months Taking B-12 1000 MCG Tablet Sublingual 1 tablet under the tongue and allow to dissolve Sublingual Once a day Taking Qulipta 30 MG Tablet 1 tablet Orally Once a day Taking Breztri Aerosphere 160-9-4.8 MCG/ACT Aerosol inhale 2 puffs into lungs TWICE DAILY Taking Ipratropium [place] 0.06 % Solution instill TWO SPRAYS into each nostril THREE TIMES DAILY Taking levETIRAcetam 500 mg Tablet TAKE THREE TABLETS Orally Once a day Taking Xtampza ER 27 mg Capsule ER 12 Hour Abuse-Deterrent TAKE ONE CAPSULE BY MOUTH EVERY TWELVE HOURS with food FOR 30 days Taking Albuterol Sulfate (2.5 MG/3ML) 0.083% Nebulization Solution 3 mL as needed Inhalation every 6 hrs Taking Zolpidem Tartrate ER 12.5 mg Tablet Extended Release TAKE ONE TABLET BY MOUTH EVERY NIGHT AT BEDTIME NEEDED Taking Vitamin B12 3000 MCG/ML Liquid as directed Sublingual Monthly Taking Cholecalciferol 1.25 MG (97003 UT) Capsule as directed Orally Weekly Taking Aimovig 140 mg/mL Solution Auto-injector inject 140mg SUBCUTANEOUSLY ONCE monthly Not-TakingNurtec 75 MG Tablet Disintegrating 1 tablet on the tongue and allow to dissolve Orally every 24 hours Crestor 20 MG Tablet 1 tablet Orally Once a day Nebulizer Mask Adult - Miscellaneous as directed Benzonatate 200 MG Capsule 1 capsule Orally Three times a day Albuterol Sulfate HFA 108 (90 Base) MCG/ACT Aerosol Solution 1 puff as needed Inhalation every 4 hrs Topiramate 50 mg Tablet TAKE ONE TABLET BY MOUTH TWICE DAILY Topiramate 200 mg Tablet TAKE ONE TABLET BY MOUTH TWICE DAILY Vitamin B12 1000 MCG Tablet Extended Release 5 Sublingual daily LORazepam 1 MG Tablet 1 tablet at bedtime as needed Orally Twice a day Denosumab 60 MG/ML Solution as directed Subcutaneous Rizatriptan Benzoate 10 mg Tablet take 1 tablet by mouth at onset of headache; if no relief may repeat 1 tablet after at least 2 hrs; max = 2 tabs/24 hours Desvenlafaxine Succinate ER 25 MG Tablet Extended Release 24 Hour 1 tablet as needed Orally Once a day Zgtp-Zb-Csqv-FA-Omeg w/o A 30-1-470 MG Capsule 1 capsule Orally Once a day Ubrogepant 100 MG Tablet 1 tablet may take second dose at least 2 hours after first dose as needed Orally Once a day Melatonin 5 MG Capsule 2 capsules Orally Once a day hydrOXYzine HCl 50 mg Tablet TAKE ONE TABLET BY MOUTH At Bedtime Milnacipran HCl 25 MG Tablet 2 tablets Orally Twice a day Medication List reviewed and reconciled with the patientNot-Taking Nurtec 75 MG Tablet Disintegrating 1 tablet on the tongue and allow to dissolve Orally every 24 hours Not-Taking Crestor 20 MG Tablet 1 tablet Orally Once a day Not-Taking Nebulizer Mask Adult - Miscellaneous as directed Not-Taking Benzonatate 200 MG Capsule 1 capsule Orally Three times a day Not- Taking Albuterol Sulfate HFA 108 (90 Base) MCG/ACT Aerosol Solution 1 puff as needed Inhalation every 4 hrs Not-Taking Topiramate 50 mg Tablet TAKE ONE TABLET BY MOUTH TWICE DAILY Not-Taking Topiramate 200 mg Tablet TAKE ONE TABLET BY MOUTH TWICE DAILY Not-Taking Vitamin B12 1000 MCG Tablet Extended Release 5 Sublingual daily Not- Taking LORazepam 1 MG Tablet 1 tablet at bedtime as needed Orally Twice a day Not- Taking Denosumab 60 MG/ML Solution as directed Subcutaneous Not-Taking Rizatriptan Benzoate 10 mg Tablet take 1 tablet by mouth at onset of headache; if no relief may repeat 1 tablet after at least 2 hrs; max = 2 tabs/24 hours Not-Taking Desvenlafaxine Succinate ER 25 MG Tablet Extended Release 24 Hour 1 tablet as needed Orally Once a day Not-Taking Zjly-Wu-Sigp-FA-Omeg w/o A 30-1-470 MG Capsule 1 capsule Orally Once a day Not-Taking Ubrogepant 100 MG Tablet 1 tablet may take second dose at least 2 hours after first dose as needed Orally Once a day Not-Taking Melatonin 5 MG Capsule 2 capsules Orally Once a day Not-Taking hydrOXYzine HCl 50 mg Tablet TAKE ONE TABLET BY MOUTH At Bedtime Not-Taking Milnacipran HCl 25 MG Tablet 2 tablets Orally Twice a day Medication List reviewed and reconciled with the patient * Allergies:?Codeine: vomiting no[Allergies Verified] Objective: * Vitals:?Ht: 59 in, Wt:83lbs, Wt-k.65 kg, BMI:16.76Index, Temp:98.2F, BP:105/62mm Hg, HR:71/min, Oxygen sat %:97%, O2 Source: RA, Ht-cm: 149.86 cm. * Examination: ???Examination: ?GENERAL APPEARANCE:?Awake/alert. No apparent distress.?LUNGS:?Clear to auscultation without rales, rhonchi, wheezing, tachypnea or air hunger.?CHEST:?Normal appearance without chest wall tenderness.?ABDOMEN:?Soft, nontender, nondistended with active bowel sounds X4. No HSM or masses.?BACK:?Normal alignment with normal active ROM. No vertebral point tenderness.? 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 Plan: * Treatment: * Procedure Codes:?21949 BRIEF EMOTIONAL/BEHAV ASSMT * Preventive Medicine:? ??Screenings:?BREAST CANCER SCREENING:?Date of most recent screening:?2022 ?COLORECTAL CANCER SCREENING:?Date of last colonoscopy?less than 5 years ?DEPRESSION SCREENING:?Date of most recent screening:?12/30/2023 ?VACCINATIONS:?Influenza vaccinations:?occur routinely ???PHQ9 - 12/29/23. * Follow Up:?3 Months * Billing Information: * Visit Code:? 77383 Office Visit, Est Pt., Level 3. * Procedure Codes:? 52258 BRIEF EMOTIONAL/BEHAV ASSMT. Care Plan Details* * Sign off status: Completed true * Provider:?Tam Ramos MD Damián e:?12/30/2023 Generated for Ezekiel sheffield/Faxing/eTransmitting on:?01/26/2024 02:07 PM DOG CONTROL OFFICER History and Physical Notes * Examination Category Sub-Category Detail Notes Examination GENERAL APPEARANCE: Awake/alert. No apparent distress CHEST: Normal appearance wi thout chest wall tenderness ABDOMEN: Soft, nontender, non distended with active bowel sounds X4. No HSM or masses BACK: Normal alignment wit h normal active ROM. No vertebral point tenderness LUNGS: Clear to auscultatio n without rales, rhonchi, wheezing, tachypnea or air hunger
--- OUTSIDE RECORDS SUMMARY | 2024-01-26 14:07 | XMS_ITS ---
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 Name Role Phone Tam Ramos Primary Care Provider [phone] REASON FOR VISIT Refills Medications Medication SIG (Take, Route, Frequency, Duration) Notes Start Date End Date Status Zolpidem Tartrate ER 12.5 mg TAKE ONE TABLET BY MOUTH EVERY NIGHT AT BEDTIME NEEDED for 30 12/22/2023 Active Encounters Encounter Location Date Provider Diagnosis [facility] [address] [address] 12/18/2023 Tam Ramos Plan Of Treatment Medication Medication Name Sig Start Date Stop Date Notes Zolpidem Tartrate ER 12.5 mg TAKE ONE TA BLET BY MOUTH EVERY NIGHT AT BEDTIME NEEDED for 30 12/22/2023 Next Appt Details Provider Name:Tam Ramos, 03/29/2024 02:00:00 PM, [address], [address], Progress Notes * Julissa ROWLANDOB:1960 (63 yo F)Acc No.[id number]:12/18/2023 Patient:?Beth ROWLAND :1960???Age:63 Y???Sex:Female Address:[address], [place] [address] * Refills? Refill Zolpidem Tartrate ER Tablet Extended Release, 12.5 mg, 30 Tablet, TAKE ONE TABLET BY MOUTH EVERY NIGHT AT BEDTIME NEEDED, 30, Refills=2 * true * Date:? Generated for Ezekiel sheffield/Terrie/Kenyatta on:?01/26/2024 02:07 PM SENIOR CARE MANAGER
--- OUTSIDE RECORDS SUMMARY | 2024-01-26 14:07 | XMS_ITS ---
Author Name Unknown Organization [facility] Address [address] [place] [address] Care Team Providers Care Hogshead Packer Name Role Phone Tam Ramos Primary Care Provider [phone] REASON FOR VISIT 3 MONTH F/U Encounters Encounter Location Date Provider Diagnosis [facility] [address] [address] 01/06/2024 Tam Ramos Plan Of Treatment Next Appt Details Provider Name:Tam Ramos, 03/29/2024 02:00:00 PM, [address] [address], [place], [address], Progress Notes * Julissa ROWLANDOB:1960 (63 yo F)Acc No.[id number]:01/06/2024 Progress Notes Patient:?Beth ROWLAND Provider:?Tam Ramos MD :1960???Age:63 Y???Sex:Female D ate:01/06/2024 Address[address], [id number] Subjective: * Chief Complaints: * ???1. 3 MONTH F/U. * Medical History:? Objective: * Vitals:? Assessment: Plan: * Treatment: Forms: * Billing Information: * Visit Code:? * Procedure Codes:? Care Plan Details* * Electronic signature of Scot Ramos MD on 01/26/2024 at 02:06 PM TEXTILE COLORIST DYER Sign off status: Pending * Provider:?Tam Ramos MD Damián e:?01/06/2024 Generated for Ezekiel sheffield/Terrie/Kenyatta on:?01/26/2024 02:06 PM TEXTILE COLORIST DYER
--- OUTSIDE RECORDS SUMMARY | 2024-01-26 14:08 | XMS_ITS | Patient Health Record ---
Author Name Unknown Organization [facility] Address [address] [facility] [address] [place] [address] Care Team Providers Care Shopfitter Name Role Phone Vishnu Skelton MD Primary Care Provider Unavail able BENJIE BOWER Unavailable [phone] Allergies Allergen (clinical drug ingredient) Drug/Non Drug Allergy documented on EMR Reaction Allergy Type Onset Date Status codeine CODEINE (uncoded) Unknown Allergy Ac tive Reason For Referral No Information Medications Medication SIG (Take, Route, Frequency, Duration) Notes Start Date End Date Status Montelukast Sodium 10 MG 1 tablet Orally Once a day Active Albuterol Sulfate (5 MG/ML) 0.5% as directed Inhalation Active Amitriptyline HCl 25 MG 1 tablet at bedtime Orally Once a day for 30 day(s) 03/22/2020 Active Tamsulosin HCl 0.4 MG 1 capsule Orally Once a day Active LORazepam 1 MG 1-2 tablet at bedtime as needed Orally Once a day for 30 days 12/10/2018 Not-Taking Flonase Allergy Relief 50 MCG/ACT 1 spray in each nostril Nasally Once a day for 30 day(s) Active Benzonatate 200 MG 1 capsule Orally Three times a day Active lamoTRIgine Not-Taki ng traZODone HCl 50 MG 1.5 tablet at bedtime Orally Once a day for 90 days Active Verapamil HCl ER 240 MG 1 tablet Orally Once a day for 30 day(s) Active Rizatriptan Benzoate 10 MG 1 tablet as needed one time Orally Once a day for 1 day(s) Active LORazepam 1 MG 1 tablet at bedtime as needed Orally Twice a day for 30 days 12/16/2019 Active Topamax 200 mg take 1 tablet by oral route 2 times every day ORAL Active Tofranil 25 mg take 1 tablet by oral route 2 times every day ORAL 01/06/2018 Not-Taking Keppra 750 MG 2 tablets Orally Twice a day for 30 day(s) Active Verapamil HCl 120 MG 1 tablet Orally Three times a day for 30 day(s) Not-Taking VITAMIN D-3 24388 UNIT ORAL CAPSULE 68585 UNIT 1 tablet every thursday ORAL *Custom Medication* Active Ibuprofen 800 mg take 1 tablet by oral route 3 times every day with food ORAL Active ProAir HFA 90 mcg inhale 2 puff by inhalation route every 4 - 6 hours as needed INHALATION Active Imitrex 100 mg ORAL Not- Taking Qvar RediHaler 80 mcg/actuation inhale 2 puff by inhalation route 2 times every day INHALATION Active LORazepam 1 MG 1 tab as directed Orally Twice a day for 30 days 09/06/2020 Active Social History Tobacco Use: Social History Observation Description Date Details (start date - stop date) Current Smoker NA - NA Sex Assigned At : Social History Observation Description Sex Assigned At Female Tobacco Use/Smoking Question Answer Notes Are you a current smoker How often do you smoke cigarettes? every day How many cigarettes a day do you smoke? 5 or les s Problems Problem Type SNOMED Code ICD Code Onset Dates Problem Status W/U Status Risk Notes Problem 763967112 Primary generalized (osteo)arthritis (M15.0) Active confirmed Problem Osteoarthritis (455584595) Polyosteoarthrit is, unspecified (M15.9) Active confirmed Problem 911633106 Fibromyalgia (M79.7) Active confirmed Problem 66890481 Age-related osteoporosis without current pathological fracture (M81.0) Active confirmed Plan Of Treatment Future Test Test Name Order Date PET Scan 04/12/2018 Comprehensive Metabolic Panel CMP 2019 BONE DENSITY 05/25/2020 Insurance Providers Payer Name Payer Address Payer Phone Subscriber Number Group Number Insured Name Patient Relationship to Insured Coverage Start Date Coverage End Date SELF PAY NO INSURANCE [id number] JOSE [place]DR[place]ON Self - patient is the insured Medications Administered Medication Instructions Date of Administration Dosage Notes Prolia Injection 1 mg 06/07/2018 60 mg Prolia Injection 1 mg 12/10/2018 60 mg Prolia Injection 1 mg 06/14/2019 60 mg Prolia Injection 1 mg 12/16/2019 60 mg Prolia Injection 1 mg 06/20/2020 60 mg Medical (General) History Surgical History Surgery Date(Month/Year) Med System: neoplastic;Proc: Hysterectom y, total;
--- OUTSIDE RECORDS SUMMARY | 2024-01-26 14:08 | XMS_ITS | Patient Health Record ---
Author Name Unknown Organization [facility] Address [address] [place] [address] Care Team Providers Care Physician Office Rep Name Role Phone Tam Ramos Primary Care Provider Allergies Allergen (clinical drug ingredient) Drug/Non Drug Allergy documented on EMR Reaction Allergy Type Onset Date Status codeine Codeine vomiting Drug Allergy Active Reason For Referral No Information Medications Medication SIG (Take, Route, Frequency, Duration) Notes Start Date End Date Status Xtampza ER 27 mg TAKE ONE CAPSULE BY MOUTH EVERY TWELVE HOURS with food FOR 30 days for 30 12/30/2023 Active Aimovig 140 mg/mL inject 140mg SUBCUTANEOUSLY ONCE monthly for 30 Active Desvenlafaxine Succinate ER 25 MG 1 tablet as needed Orally Once a day for 30 days 04/08/2022 Not-Taking Ipratropium [place] 0.06 % instill TWO SPRAYS into each nostril THREE TIMES DAILY for 30 Active Melatonin 5 MG 2 capsules Orally On ce a day Not-Taking levETIRAcetam 500 mg TAKE THREE TABLETS Orally Once a day for 30 days Active hydrOXYzine HCl 50 mg TAKE ONE TABLET BY MOUTH At Bedtime for 30 Not-Taki ng Qulipta 30 MG 1 tablet Orally Once a day Active Abbz-Yx-Htak-FA-Omeg w/o A 30-1-470 MG 1 capsule Orally Once a day Not-Taking Breztri Aerosphere 160-9-4.8 MCG/ACT inhale 2 puffs into lungs TWICE DAILY for 30 Active Ubrogepant 100 MG 1 tablet may take second dose at least 2 hours after first dose as needed Orally Once a day for 30 days Not-Taking Zolpidem Tartrate ER 12.5 mg TAKE ONE TABLET BY MOUTH EVERY NIGHT AT BEDTIME NEEDED for 30 12/22/2023 Active Vitamin B12 3000 MCG/ML as directed Subl ingual Monthly Active Milnacipran HCl 25 MG 2 tablets Orally T wice a day Not-Taking Albuterol Sulfate (2.5 MG/3ML) 0.083% 3 mL as needed Inhalation every 6 hrs for 30 days Active B-12 1000 MCG 1 tablet under the tongue and allow to dissolve Sublingual Once a day Active Rizatriptan Benzoate 10 mg take 1 tablet by mouth at onset of headache; if no relief may repeat 1 tablet after at least 2 hrs; max = 2 tabs/24 hours for 30 Not-Taking Prolia 60 MG/ML as directed Subcutaneous Every 6 months Active Crestor 20 MG 1 tablet Orally Once a day Not-Taking Albuterol Sulfate HFA 108 (90 Base) MCG/ACT 1 puff as needed Inhalation every 4 hrs Not-Takin g Topiramate 50 mg TAKE ONE TABLET BY MOUTH TWICE DAILY for 30 Not-Taking Nebulizer Mask Adult - as directed Not-Taking Benzonatate 200 MG 1 capsule Orally Thr ee times a day Not-Taking LORazepam 1 MG 1 tablet at bedtime as needed Orally Twice a day Not-Taking Denosumab 60 MG/ML as directed Subcutaneous Not-Taking Topiramate 200 mg TAKE ONE TABLET BY MOUTH TWICE DAILY for 30 Not-Taking Vitamin B12 1000 MCG 5 Sublingual daily Not-Taking Cholecalciferol 1.25 MG (55111 UT) as directed Orally Weekly Active Nurtec 75 MG 1 tablet on the tong ue and allow to dissolve Orally every 24 hours Not-Taking Social History Tobacco Use: Social History Observation [...] ast year? 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) Active confirmed Problem 87485764 Anxiety (F41.9) Active confirmed Problem 97437462 Chronic fatigue (R53.82) Active confirmed Problem 393776485 Asthma, unspecified asthma severity, unspecified whether complicated, unspecified whether persistent (J45.909) Active confirmed Problem 2965430 Migraine with au ra and without status migrainosus, not intractable (G43.109) Active confirmed Problem 867454228 Tobacco abuse (Z72.0) Active confirmed Problem 022207031 Insomnia, unspecified type (G47.00) Active confirmed Problem 924860143490 Non-allergic rhinitis (J31.0) Active confirmed Problem 35487673 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) Active confirmed Problem 088867848 B12 deficiency (E53.8) Active confirmed Problem 538838492 Polypharmacy (Z79.899) Active confirmed Problem 873154051 Post-traumatic osteoarthritis of multiple joints (M15.3) Active confirmed Problem 01400679 Primary hypertension (I10) Active confirmed Problem 95573345 Drug-induced constipation with proper administration (K59.03) Active confirmed Vital Signs Heart Rate 71 /min 12/30/2023 Temperature 98.2 degrees Fahrenheit 12/30/2023 Height-cm 149.86 cm 12/30/2023 Oximetry 97 % 12/30/2023 Blood pressure diastolic 62 mm Hg 12/30/2023 Weight-kg 37.65 kg 12/30/2023 Height 59 in 12/30/2023 Blood pressure systolic 105 mm Hg 12/30/2023 Weight 83 lbs 12/30/2023 BMI 16.76 kg/m2 12/30/2023 Encounters Encounter Location Date Provider Diagnosis [facility] [address] [place] [phone] 04/08/2023 Tam Ramos Post-traumatic osteoarthritis of multiple joints M15.3 ; B12 deficiency E53.8 ; Unspecified cord compression G95.20 ; Nonintractable absence epilepsy without status epilepticus G40.A09 ; Major depressive disorder, recurrent, mild F33.0 ; Anxiety F41.9 ; Insomnia, unspecified type G47.00 ; Primary hypertension I10 ; Asthma, unspecified asthma severity, unspecified whether complicated, unspecified whether persistent J45.909 ; Tobacco abuse Z72.0 and Dependence on other enabling machines and devices Z99.89 [facility] [address] [place] [phone] 07/08/2023 Tam Ramos Unspecified cord compression G95.20 and Primary hypertension I10 [facility] [address] [place] [phone] 10/07/2023 Tam Ramos Nonintractable absence epilepsy without status epilepticus G40.A09 ; Post-traumatic osteoarthritis of multiple joints M15.3 and B12 deficiency E53.8 [facility] [address] [place] [phone] 12/30/2023 Tam Ramos Nonintractable absence epilepsy without status epilepticus G40.A09 ; B12 deficiency E53.8 ; Primary hypertension I10 ; Tobacco abuse Z72.0 and Depression screen Z13.31 [facility] [address] [place] [phone] 04/15/2023 Tam Ramos [facility] [address] [place] [phone] 06/10/2023 Tam Ramos [facility] [address] [place] [phone] 06/11/2023 [facility] [address] [place] [address] 09/09/2023 [facility] [address] [place] [address] 10/12/2023 [facility] [address] [place] [address] 11/04/2023 [facility] [address] [place] [address] 11/26/2023 [facility] [address] [place] [address] 12/18/2023 Tam Ramos Assessments Encounter Date Diagnosis (ICD Code) Assessment Notes Treat ment Notes Treatment Clinical Notes 04/08/2023 B12 deficiency (ICD-10 - E53.8) 04/08/2023 Post-traumatic osteoarthritis of multiple joints (ICD-10 - M15.3) 07/08/2023 Unspecified cord compression (ICD-10 - G95.20) 10/07/2023 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 - G40.A09) 12/30/2023 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 - G40.A09) 12/30/2023 B12 deficiency (ICD-10 - E53.8) 12/30/2023 Primary hypertension (ICD-10 - I10) 10/07/2023 Post-traumatic osteoarthritis of multiple joints (ICD-10 - M15.3) 07/08/2023 Primary hypertension (ICD-10 - I10) 04/08/2023 Unspecified cord compression (ICD-10 - G95.20) 12/30/2023 Tobacco abuse (ICD-1 0 - Z72.0) 10/07/2023 B12 deficiency (ICD-10 - E53.8) 04/08/2023 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 - G40.A09) 12/30/2023 Depression screen (ICD-10 - Z13.31) 04/08/2023 Major depressive disorder, recurrent, mild (ICD-10 - F33.0) 04/08/2023 Anxiety (ICD-10 - F41.9) 04/08/2023 Insomnia, unspecifie d type (ICD-10 - G47.00) 04/08/2023 Primary hypertension (ICD-10 - I10) 04/08/2023 Asthma, unspecified asthma severity, unspecified whether complicated, unspecified whether persistent (ICD-10 - J45.909) 04/08/2023 Tobacco abuse (ICD-1 0 - Z72.0) 04/08/2023 Dependence on other enabling machines and devices (ICD-10 - Z99.89) Plan Of Treatment Next Appt Details Provider Name:Tam Ramos, 03/29/2024 02:00:00 PM, [address] [place] [address], [phone], Insurance Providers Payer Name Payer Address Payer Phone Subscriber Number Group Number Insured Name Patient Relationship to Insured Coverage Start Date Coverage End Date [place] Medicare [address] [facility] [place] [address] [phone] [id number] Beth Rowland Self - patient is the insured [address] [phone] [id number] Beth Rowland Self - patient is the insured [place] [address] [place] [address] [phone] [id number] Beth Rowland Self - patient is the insured Medications Administered Medication Instructions Date of Administration Dosage Notes Cyanocobalamin 11/27/2022 1 mg Cyanocobalamin 12/04/2022 Cyanocobalamin 12/11/2022 Medical (General) History Medical History History ICD Code Asthma Breast calcification Clavicle fracture Compression Fracture COPD Migraines Osteoporosis Seizures stroke Mini stroke Surgical History Surgery Date(Month/Year) none back surgery Hospitalization History Reason Date(Month/Year) see surgical hx
[2024-01-26] MEDS: denosumab 60 mg SDV SUBCUT (15:38)
--- NOTE | 2024-01-26 15:51 | XR_ITS ---
WS: [id number] Chest 2 views, 01/26/2024 Clinical Data: marcrocytosis Comparison: None. Findings: No nodules, masses or effusions are seen. The heart is normal. The pulmonary vascularity is not increased. No pneumonia or pneumothorax is seen. The diaphragms are flattened. The aortic arch a nd descending thoracic aorta show tortuosity. There are decorative items overlying the patient's rosa elena sts. XR/XR chest 2V* [id number] Impression: Hyperinflation and atherosclerosis.
[2024-01-26 15:55] VITALS: BP 102/64; PULSE 62; RESP 18; TEMP 36.1; O2SAT 95
[2024-01-26 16:23] LABS: Immunoglobulin IGA 124 mg/dL (70-400); Immunoglobulin IGG 800 mg/dL (700-1600); Immunoglobulin IGM 94 mg/dL (40-230)
[2024-01-27 07:26] LABS: PROTEIN, TOTAL 6.7 g/dL (6.1-8.1)
[2024-01-27 17:15] LABS: ALBUMIN 4.3 g/dL (3.8-4.8); ALPHA 1 GLOBULIN 0.3 g/dL (0.2-0.3); ALPHA 2 GLOBULIN 0.7 g/dL (0.5-0.9); BETA 1 GLOBULIN 0.4 g/dL (0.4-0.6); BETA 2 GLOBULIN 0.3 g/dL (0.2-0.5); GAMMA GLOBULIN 0.8 g/dL (0.8-1.7)
[2024-01-29 22:04] LABS: Kappa Free Light Chains Urine 37.68 mg/L (<=32.90)
[2024-01-30 22:01] LABS: Immunofixation Serum Normal pattern.
[2024-02-02 08:09] LABS: Cryoglobulins Qualitative None Detected (None Detected)
== END 2024-02-13 23:59 | disposition home or self-care (01) ==
LOC: ONCMED 14:05
PROVIDERS: Internal Medicine Medical Oncology; PCP Internal Medicine; Visit Provider Psychiatry & Neurology Neurology
DX: M81.0 Age-related osteoporosis without current pathological fracture (principal); G44.53 Primary thunderclap headache; G47.19 Other hypersomnia; G40.919 Epilepsy, unspecified, intractable, without status epilepticus; I65.29 Occlusion and stenosis of unspecified carotid artery; D75.89 Other specified diseases of blood and blood-forming organs; E53.8 Deficiency of other specified B group vitamins; G43.711 Chronic migraine without aura, intractable, with status migrainosus; E55.9 Vitamin D deficiency, unspecified; L98.9 Disorder of the skin and subcutaneous tissue, unspecified; M79.674 Pain in right toe(s); M48.061 Spinal stenosis, lumbar region without neurogenic claudication
CPT/HCPCS: 36415; 71046; 82595; 82784; 83883; 84155; 84156; 84165; 86334; 86335; 96372; 99212; 99214; J0897

== ENCOUNTER → 2024-02-04 14:12 | Outpatient (BNVA) | payer MEDICARE, OTHER, SELFPAY | PROVIDERS: PCP Internal Medicine; Referring Provider Psychiatry & Neurology Neurology; Visit Provider Nurse Practitioner Family | DX: L57.8 Other skin changes due to chronic exposure to nonionizing radiation (principal); L81.4 Other melanin hyperpigmentation; D22.39 Melanocytic nevi of other parts of face; L82.1 Other seborrheic keratosis; D48.5 Neoplasm of uncertain behavior of skin | CPT/HCPCS: 11102; 99203 ==

== ENCOUNTER → 2024-03-28 13:15 | Outpatient (BNVA) | payer MEDICARE, OTHER, SELFPAY | PROVIDERS: PCP Internal Medicine; Visit Provider Dermatology | DX: L72.0 Epidermal cyst (principal); D04.71 Carcinoma in situ of skin of right lower limb, including hip | CPT/HCPCS: 11603; 13121; 99212 ==

== ENCOUNTER 2024-04-11 08:25 | Oncology outpatient (recurring) (ONCR) | payer MEDICARE, OTHER, SELFPAY ==
[2024-04-11 08:55] LABS: Basophils # 0.1 10^3/uL (0.0-0.1); Basophils % 0.7 %; Eosinophils # 0.2 10^3/uL (0.0-0.8); Eosinophils % 3.3 %; Hematocrit 43.6 % (36-47); Lymphocytes # 2.5 10^3/uL (0.8-4.8); Lymphocytes % 34.2 %; Mean Corpuscular HGB Conc 31.9 g/dL (30-55); Mean Corpuscular Hemoglobin 32.7 pg (27-33); Mean Corpuscular Volume 102.6 fl (85-98); Mean Platelet Volume 9.4 fL (7.4-10.4); Monocytes # 0.6 10^3/uL (0.2-0.9); Monocytes % 7.6 %; Neutrophils # 3.93 10^3/uL (1.8-7.7); Neutrophils % 53.9 %; Nucleated Red Blood Cells % 0 %; Platelet Count 193 10^3/cmm (157-399); Red Blood Count 4.25 10^6/uL (3.85-5.65); White Blood Count 7.28 10^3/uL (3.29-11.43)
== END 2024-04-15 23:59 | disposition home or self-care (01) ==
PROVIDERS: Internal Medicine Medical Oncology; PCP Internal Medicine; Visit Provider Psychiatry & Neurology Neurology
DX: E53.8 Deficiency of other specified B group vitamins (principal); C44.792 Other specified malignant neoplasm of skin of right lower limb, including hip; F17.210 Nicotine dependence, cigarettes, uncomplicated; M81.0 Age-related osteoporosis without current pathological fracture; D75.89 Other specified diseases of blood and blood-forming organs; Z79.899 Other long term (current) drug therapy
CPT/HCPCS: 36415; 85025; 99214

== ENCOUNTER → 2024-07-18 12:35 | Outpatient (BNVA) | payer MEDICARE, OTHER, SELFPAY | PROVIDERS: PCP Internal Medicine; Visit Provider Psychiatry & Neurology Neurology | DX: G43.711 Chronic migraine without aura, intractable, with status migrainosus (principal); G40.919 Epilepsy, unspecified, intractable, without status epilepticus | CPT/HCPCS: 99212 ==

== ENCOUNTER 2024-07-25 09:49 | Oncology outpatient (recurring) (ONCR) | payer MEDICARE, OTHER, SELFPAY ==
[2024-07-25 10:25] LABS: Basophils # 0.1 10^3/uL (0.0-0.1); Basophils % 0.8 %; Eosinophils # 0.2 10^3/uL (0.0-0.8); Eosinophils % 2.5 %; Hematocrit 43.2 % (36-47); Lymphocytes # 2.4 10^3/uL (0.8-4.8); Lymphocytes % 33.1 %; Mean Corpuscular HGB Conc 31.5 g/dL (30-55); Mean Corpuscular Hemoglobin 32.5 pg (27-33); Mean Corpuscular Volume 103.1 fl (85-98); Mean Platelet Volume 9.3 fL (7.4-10.4); Monocytes # 0.5 10^3/uL (0.2-0.9); Monocytes % 6.8 %; Neutrophils # 4.09 10^3/uL (1.8-7.7); Neutrophils % 56.4 %; Nucleated Red Blood Cells % 0 %; Platelet Count 220 10^3/cmm (157-399); Red Blood Count 4.19 10^6/uL (3.85-5.65); Red Cell Distribution Width 13.5 % (12.1-15.1); White Blood Count 7.25 10^3/uL (3.29-11.43)
[2024-07-25 10:54] LABS: Alanine Aminotransferase 9 U/L (0-33); Albumin Level 4.2 g/dL (3.5-5.2); Alkaline Phosphatase 72 U/L (35-105); Aspartate Amino Transferase 14 U/L (0-32); Blood Urea Nitrogen 14 mg/dL (8-23); Calcium 8.9 mg/dL (8.5-10.5); Carbon Dioxide 22 mmol/L (22-29); Chloride 109 mmol/L (98-107); Creatinine Clr Calc Pharmacy 53.1058; Globulin 2.3 g/dL (1.3-4.6); Glomerular Filtration Rate 84.8 mL/min (90-130); Glucose 90 mg/dL (65-115); Osmolality Calculated 296 mOsm/kg (285-295); Sodium 143 mmol/L (136-145); Total Bilirubin 0.2 mg/dL (0.15-1.2); Total Protein 6.5 g/dL (6.6-8.7)
[2024-07-25 11:10] LABS: 25 Hydroxy Vitamin D 24 ng/mL (30-100); Vitamin B12 546 pg/mL (232-1245)
[2024-07-25] MEDS: denosumab 60 mg SDV SUBCUT (11:31)
--- NOTE | 2024-07-25 13:27 | XR_ITS ---
WS: [id number] DEXA (DUAL ENERGY X-RAY ABSORPTIOMETRY) Bone mineral density was performed using a [employer] machine. HISTORY: AGE RELATED OSTEOPOROSIS W/O CURRENT FX COMPARISON: 05/28/2022 Lumbar spine BMD (L1-L4): 0.816 g/cm2 T score: -3.0 Z score: -0.7 Total hip BMD: Left: 0.681 g/cm2. T score: -2.6 Z score: -0.9 Right: 0.730 g/cm2. T score: -2.2 Z score: -0.5 10 year probability of a major osteoporotic fracture is 26.2%. Compared to the prior study from 05/28/2022. Lumbar spine bone mineral density has increased by 1.1%. Bilateral hips bone mineral density has increased by 2.9%. XR/XR DEXA axial skeleton* [id number] IMPRESSION: OSTEOPOROSIS based upon the WHO classification for females. Significant increase in bone mineral density within the hips since the prior . No change in the lumbar spine.
== END 2024-08-13 23:59 | disposition home or self-care (01) ==
PROVIDERS: Internal Medicine Medical Oncology; PCP Internal Medicine; Visit Provider Psychiatry & Neurology Neurology
DX: E53.8 Deficiency of other specified B group vitamins (principal); C44.792 Other specified malignant neoplasm of skin of right lower limb, including hip; F17.210 Nicotine dependence, cigarettes, uncomplicated; M81.0 Age-related osteoporosis without current pathological fracture; D75.89 Other specified diseases of blood and blood-forming organs; Z79.899 Other long term (current) drug therapy; G44.53 Primary thunderclap headache; G47.19 Other hypersomnia; G40.919 Epilepsy, unspecified, intractable, without status epilepticus; I63.9 Cerebral infarction, unspecified; I65.29 Occlusion and stenosis of unspecified carotid artery; G43.711 Chronic migraine without aura, intractable, with status migrainosus; E55.9 Vitamin D deficiency, unspecified; L98.9 Disorder of the skin and subcutaneous tissue, unspecified; M79.674 Pain in right toe(s); M48.061 Spinal stenosis, lumbar region without neurogenic claudication
CPT/HCPCS: 36415; 77080; 80053; 82306; 82607; 82746; 85025; 96372; 99213; J0897